=== PATIENT | male | born 1930 | race Hispanic/Latino ===

== ENCOUNTER 2017-11-05 09:18 | Emergency (ER) | payer MEDICARE ==
--- NOTE | 2017-11-05 10:49 | ED PDOC ---
HPI: CCC, URI, Sore Throat Time Seen by Provider: 11/05/17 09:36 Chief Complaint (Nursing): Cough, Cold, Congestion Chief Complaint (Provider): URI History Per: Patient Additional Complaint(s): Patient is an 87 yo male complaints of nasal congestion, SOB and sore/dry throat x 2 days. Denies fever or CP. 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) Past Medical History Reviewed: Nursing Documentation, Vital Signs Vital Signs: Last Vital Signs Temp 98.1 F 11/05/17 15:03 Pulse 75 11/05/17 15:03 Resp 16 11/05/17 15:03 BP 145/80 11/05/17 15:03 Pulse Ox 96 11/07/17 22:23 - Medical History Other PMH: Pt has trach in place - Family History Family History: States: Unknown Family Hx - Social History Current smoker - smoking cessation education provided: No Ex-Smoker (has not smoked in the last 12 months): Yes (2 ppd x 40 years) Alcohol: Social Drugs: Denies - Home Medications Home Medications: Ambulatory Orders Medication Instructions Recorded Azithromycin [Zithromax] 500 mg PO DAILY #6 tab 11/05/17 Azithromycin [Zithromax] 500 mg PO DAILY 4 Days ml 11/05/17 Guaifenesin/Pseudoephedrne HCl 1 tab PO DAILY PRN #30 ter 11/05/17 [Mucinex D 600 mg-60 mg] Oseltamivir [Tamiflu] 75 mg PO BID 5 Days cap 11/05/17 Oseltamivir [Tamiflu] 75 mg PO BID 5 Days ml 11/05/17 - Allergies Allergies/Adverse Reactions: Allergies Allergy/AdvReac Type Severity Reaction Status Date / Time No Known Allergies Allergy Verified 11/05/17 09:29 Review of Systems ROS Statement: Except As Marked, All Systems Reviewed And Found Negative ENT: Positive for: Nose Congestion Physical Exam - Reviewed Nursing Documentation Reviewed: Yes Vital Signs Reviewed: Yes - Physical Exam Appears: Positive for: Well, Non-toxic, No Acute Distress Head Exam: Positive for: ATRAUMATIC, NORMAL INSPECTION, NORMOCEPHALIC Skin: Positive for: Normal Color, Warm, DRY Eye Exam: Positive for: EOMI, Normal appearance, PERRL ENT: Positive for: Normal ENT Inspection Neck: Positive for: Normal, Painless ROM, Trachea Midline (trach in place) Cardiovascular/Chest: Positive for: Regular Rate, Rhythm Respiratory: Positive for: CNT, Normal Breath Sounds Gastrointestinal/Abdominal: Positive for: Normal Exam, Bowel Sounds, Soft Back: Positive for: Normal Inspection Extremity: Positive for: Normal ROM Neurologic/Psych: Positive for: Alert, Oriented - Laboratory Results Result Diagrams: 11/05/17 10:21 11/05/17 10:21 - ECG O2 Sat by Pulse Oximetry: 96 Medical Decision Making Medical Decision Making: EKG: A.flutter, left axis deviation, no acute ST changes, as read by ED MD CXR: Questionable left basilar infiltrate, as read by [facility] Labs resulted and reviewed with Pt who demonstrated full understanding admission advised for antibiotic therapy and further evaluation and management; however, Pt declined. reprots he would like to take oral antibiotics and go home Pt signed out AMA after all risks of leaving hospital were discussed at length, as well as all benefits of staying Disposition - Clinical Impression Clinical Impression: Pneumonia - Disposition Disposition: Against Medical Advice Disposition Time: 14:34 Condition: STABLE Prescriptions: Azithromycin [Zithromax] 500 mg PO DAILY 4 Days ml Azithromycin [Zithromax] 500 mg PO DAILY #6 tab Guaifenesin/Pseudoephedrne HCl [Mucinex D 600 mg-60 mg] 1 tab PO DAILY PRN #30 ter PRN Reason: congestion Oseltamivir [Tamiflu] 75 mg PO BID 5 Days ml Oseltamivir [Tamiflu] 75 mg PO BID 5 Days cap Forms: [employer] ([place])
[2017-11-05 11:07] LABS: BASO % 0.5 % (0.0-2.0); EOS % 0.1 % (0.0-4.0); HEMOGLOBIN 14.8 g/dL (12.0-18.0); LYMPH # 0.6 K/uL (1.0-4.3); LYMPH % 8.2 % (20.0-40.0); MEAN CELL VOLUME 99.7 fl (80.0-94.0); MEAN CORPUSCULAR HEMOGLOBIN 33.4 pg (27.0-31.0); MEAN CORPUSCULAR HGB CONC 33.5 g/dL (33.0-37.0); MEAN PLATELET VOLUME 8.8 fl (7.2-11.7); MONO # 0.7 K/uL (0.0-0.8); MONO % 9.9 % (0.0-10.0); NEUT % 81.3 % (50.0-75.0); PLATELET COUNT 238 K/uL (130-400); RBC 4.42 Mil/uL (4.40-5.90); RED CELL DISTRIBUTION WIDTH 14.1 % (11.5-14.5); WHITE BLOOD COUNT 7.3 K/uL (4.8-10.8)
[2017-11-05 11:13] LABS: ALB/GLOB RATIO 0.9 (1.0-2.1); ALBUMIN 3.9 g/dL (3.5-5.0); CALCIUM 8.8 mg/dL (8.4-10.2)
[2017-11-05 11:22] LABS: INR 1.3 (0.9-1.2); PARTIAL THROMBOPLASTIN TIME 30.5 Seconds (25.6-37.1); PROTHROMBIN TIME 14.1 Seconds (9.8-13.1)
[2017-11-05 11:24] LABS: TROPONIN I 0.053 ng/mL (0.00-0.120)
--- NOTE | 2017-11-05 11:30 | RAD ---
PROCEDURE: CHEST RADIOGRAPH, 1 VIEW HISTORY: cough COMPARISON: Chest radiograph dated 05/01/2008 FINDINGS: LUNGS: Patchy left basilar infiltrate versus focal scarring. PLEURA: No pneumothorax or pleural fluid seen. CARDIOVASCULAR: Atherosclerotic aortic calcifications. Cardiomediastinal silhouette stably enlarged. OSSEOUS STRUCTURES: Unchanged. VISUALIZED UPPER ABDOMEN: Normal. OTHER FINDINGS: Tracheostomy redemonstrated. IMPRESSION: Patchy left basilar infiltrate versus focal scarring.
[2017-11-05 12:48] LABS: EOSINOPHIL 1 % (0-7); LYMPHOCYTE 9 % (20-50); MONOCYTE 12 % (0-10); NEUTROPHIL 78 % (42-75); PLATELET ESTIMATE NORMAL (NORMAL); TOTAL CELLS COUNTED 100
[2017-11-05 15:04] VITALS: BP 145/80; PULSE 75; RESP 16; TEMP 98.1
--- NOTE | 2017-11-06 02:57 | CARD ---
APPROVED REPORT EKG Measurement Heart [id number] <Conclusion> consider A Flutter with 4:1 conduction Left axis deviation Anteroseptal infarct, age undetermined Abnormal ECG
[2017-11-07 22:20] VITALS: O2SAT 96
== END 2017-11-05 15:04 | disposition left against medical advice (07) ==
LOC: H.ER 09:18
DX: J18.9 Pneumonia, unspecified organism (principal); Z93.0 Tracheostomy status

== ENCOUNTER 2018-08-22 12:56 | Inpatient (IN) | payer MEDICARE, OTHER ==
[2018-08-22] MEDS ORDERED: Sodium Chloride 0.9% 1,000 ML IV STA ×2 (13:21→14:50)
--- NOTE | 2018-08-22 13:24 | ED PDOC ---
HPI: SOB/CHF/COPD Time Seen by Provider: 08/22/18 13:04 Chief Complaint (Nursing): Shortness Of Breath Chief Complaint (Provider): Shortness Of Breath History Per: EMS Onset/Duration Of Symptoms: Unknown Current Symptoms Are (Timing): Still Present Severity: Mild Additional Complaint(s): Brought by EMS due to tracheostomy tube falling out with subsequent SOB. Denies cough or bad pain. Denies fever. Past Medical History Reviewed: Historical Data, Nursing Documentation, Vital Signs Vital Signs: Last Vital Signs Temp Pulse 84 08/22/18 13:19 Resp 30 H 08/22/18 13:05 BP 110/75 08/22/18 13:19 Pulse Ox 88 L 08/22/18 13:05 - Surgical History Other surgeries: s/p tracheostomy - Family History Family History: States: Unknown Family Hx - Allergies Allergies/Adverse Reactions: Allergies Allergy/AdvReac Type Severity Reaction Status Date / Time No Known Allergies Allergy Verified 08/22/18 13:05 Review of Systems ROS Statement: Except As Marked, All Systems Reviewed And Found Negative Constitutional: Negative for: Fever Cardiovascular: Negative for: Chest Pain Respiratory: Positive for: Shortness of Breath Gastrointestinal: Negative for: Vomiting Physical Exam - Reviewed Nursing Documentation Reviewed: Yes Vital Signs Reviewed: Yes - Physical Exam Appears: Positive for: Non-toxic, No Acute Distress Head Exam: Positive for: ATRAUMATIC, NORMAL INSPECTION, NORMOCEPHALIC Skin: Positive for: Normal Color, Warm, DRY Eye Exam: Positive for: EOMI, Normal appearance, PERRL ENT: Positive for: Other (Dried blood around lips). Negative for: Normal ENT Inspection Neck: Negative for: Normal (Tracheostomy site intact, no bleeding. Secretions suctioned) Cardiovascular/Chest: Positive for: Regular Rate, Rhythm Respiratory: Positive for: Rhonchi. Negative for: Wheezing, Respiratory Distress Gastrointestinal/Abdominal: Positive for: Soft, Hernia (Large umbilical hernia). Negative for: Tenderness Back: Positive for: Normal Inspection Extremity: Positive for: Other (Left hip 3 cm dried ulcer with surrounding erythema. No drainage) Neurologic/Psych: Positive for: Alert, Oriented - Laboratory Results Result Diagrams: 08/22/18 13:29 08/22/18 13:29 - ECG O2 Sat by Pulse Oximetry: 88 (RA) Pulse Ox Interpretation: Normal - Progress Re-evaluation Time: 14:55 Condition: Unchanged - Critical Care Total Time (In Min): 30 Documented Critical Care: Time excludes all time spent performint seperately billable procedures Medical Decision Making Medical Decision MakinFr uncuffed trach tube replaced Disposition - Clinical Impression Clinical Impression: Sepsis, UTI (urinary tract infection), Dehydration - Patient ED Disposition Is Patient to be Admitted: Yes - Disposition Disposition Time: 14:56 Condition: GUARDED Forms: [employer] ([place] Citizen) - Pt Status Changed To: Hospital Disposition Of: Inpatient - Admit Certification Admit to Inpatient:: After my assessment, the patient will require hospitalization for at least two midnights. This is because of the severity of symptoms shown, intensity of services needed, and/or the medical risk in this patient being treated as an outpatient. - POA Present On Arrival: Pressure Ulcer
[2018-08-22 13:46] LABS: ALB/GLOB RATIO 0.8 (1.0-2.1); ALBUMIN 3.6 g/dL (3.5-5.0); BASO # 0.1 K/uL (0.0-0.2); BASO % 0.4 % (0.0-2.0); CALCIUM 8.7 mg/dL (8.4-10.2); LYMPH # 0.1 K/uL (1.0-4.3); LYMPH % 0.5 % (20.0-40.0); MEAN CELL VOLUME 100.6 fl (80.0-94.0); MEAN CORPUSCULAR HEMOGLOBIN 33.1 pg (27.0-31.0); MEAN CORPUSCULAR HGB CONC 32.9 g/dL (33.0-37.0); MEAN PLATELET VOLUME 8.7 fl (7.2-11.7); MONO # 0.5 K/uL (0.0-0.8); MONO % 2.3 % (0.0-10.0); NEUT # 20.4 K/uL (1.8-7.0); NEUT % 96.8 % (50.0-75.0); PLATELET COUNT 241 K/uL (130-400); RBC 3.62 Mil/uL (4.40-5.90); WHITE BLOOD COUNT 21.1 K/uL (4.8-10.8)
--- NOTE | 2018-08-22 14:08 | RAD ---
Date of service: 08/22/2018 HISTORY: Cough. COMPARISON: 05/08/2018. FINDINGS: LUNGS: No active pulmonary disease. PLEURA: No significant pleural effusion identified, no pneumothorax apparent. CARDIOVASCULAR: Atherosclerotic calcifications identified primarily aortic arch. No radiographic findings to suggest acute or significant cardiovascular disease. OSSEOUS STRUCTURES: No significant abnormalities. VISUALIZED UPPER ABDOMEN: Normal. OTHER FINDINGS: Stable, satisfactory position of tracheostomy device. IMPRESSION: No active disease. No significant interval change compared to the prior examination(s).
[2018-08-22 14:47] LABS: VENOUS BLOOD GAS BASE EXCESS -3.8 mmol/L (0.0-2.0); VENOUS BLOOD GAS PCO2 49 mmHg (40-60); VENOUS BLOOD GAS PO2 15 mm/Hg (30-55); VENOUS BLOOD PH 7.29 (7.32-7.43)
[2018-08-22] MEDS ORDERED: Vancomycin 1 g Inj ONE (14:54)
[2018-08-22] MEDS ORDERED: Acetaminophen 325 MG/10.15 ML PO STA (15:04)
[2018-08-22] MEDS ORDERED: Acetaminophen 325 MG/10.15 ML ONE (15:07)
[2018-08-22 15:20] LABS: BANDS 8 % (0-2); LYMPHOCYTE 1 % (20-50); MONOCYTE 5 % (0-10); NEUTROPHIL 86 % (42-75); PLATELET ESTIMATE NORMAL (NORMAL); TOTAL CELLS COUNTED 100
[2018-08-22 15:21] LABS: ANISOCYTOSIS SLIGHT; LARGE PLATELETS PRESENT; OVALOCYTES SLIGHT
[2018-08-22 15:22] LABS: SQUAMOUS EPITHIAL 63 /hpf (0-5); URINE BACTERIA MANY (<OCC); URINE BILIRUBIN NEGATIVE (NEGATIVE); URINE BLOOD MODERATE (NEGATIVE); URINE CLARITY TURBID (Clear); URINE COLOR YELLOW (YELLOW); URINE GLUCOSE (UA) NEG (NEGATIVE); URINE LEUKOCYTE ESTERASE SMALL Leu/uL (Negative); URINE PROTEIN >=500 mg/dL (NEGATIVE); URINE UROBILINOGEN 0.2-1.0 mg/dL (0.2-1.0); WBC CLUMPS MANY /hpf
--- NOTE | 2018-08-22 16:08 | CP.PCM.HP ---
<Susan Parekh - Last Filed: 08/22/18 16:27> History of Present Illness - History of Present Illness History of Present Illness: 87 yo male seen in the ED for sepsis secondary possibly secondary to UTI. Patient is not oriented and is unable to give full history. Patients daughter is at bedside who is also unable to give the patients history, as the patient lives alone. Patient states he does not know why hes at the hospital and states he is in no pain at this time. Patient states he remembers his trach had came out, and thinks hes in the ED for that reason. Denies seeing a primary care doctor at this time. States he used to see Dr. Robbins, however that doctor has retired. As per nurse, purulent drainage noted while inserting the frederick catheter. Patient denies fever/chills/nausea/vomiting/d/c/SOB. 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), no current doctor. Past medical history: denies Past surgical history: tracheotomy Allergies: none Medication: Radha rae Present on Admission - Present on Admission Any Indicators Present on Admission: No Review of Systems - Cardiovascular Cardiovascular: absent: Chest Pain - Gastrointestinal Gastrointestinal: absent: Vomiting Past Patient History - Past Social History Smoking Status: Unknown If Ever Smoked - PULMONARY Hx Respiratory Disorders: Yes Other/Comment: tracheostomy - PSYCHIATRIC Hx Substance Use: No - ANESTHESIA Hx Anesthesia: Yes Hx Anesthesia Reactions: No Hx Malignant Hyperthermia: No Meds Allergies/Adverse Reactions: Allergies Allergy/AdvReac Type Severity Reaction Status Date / Time No Known Allergies Allergy Verified 08/22/18 13:05 Physical Exam - Constitutional Appears: Well, Non-toxic, No Acute Distress - Head Exam Head Exam: ATRAUMATIC, NORMAL INSPECTION, NORMOCEPHALIC - Eye Exam Eye Exam: Normal appearance, PERRL Pupil Exam: PERRL - ENT Exam ENT Exam: Mucous Membranes Dry Additional comments: Dried blood around lips - Neck Exam Additional comments: tracheotomy site intact, no bleeding, secretions suctioned - Respiratory Exam Respiratory Exam: Rhonchi. absent: Wheezes, Respiratory Distress - GI/Abdominal Exam GI & Abdominal Exam: Normal Bowel Sounds Additional comments: large umbilical hernias - Extremities Exam Extremities exam: Negative for: calf tenderness, pedal edema, tenderness Additional comments: Left hip 3 cm dried ulcer with surrounding erythema, no drainage. superficial - Neurological Exam Neurological exam: Alert - Psychiatric Exam Psychiatric exam: Normal Affect - Skin Skin Exam: Normal Color Results - Vital Signs Recent Vital Signs: Last Vital Signs Temp 102.8 F H 08/22/18 15:15 Pulse 88 08/22/18 13:28 Resp 20 08/22/18 13:28 BP 110/74 08/22/18 13:28 Pulse Ox 88 L 08/22/18 14:56 - Labs Result Diagrams: 08/22/18 13:29 08/22/18 13:29 Labs: Laboratory Results - last 24 hr 08/22/18 08/22/18 08/22/18 13:29 13:29 14:18 WBC 21.1 H D RBC 3.62 L Hgb 12.0 D Hct 36.4 MCV 100.6 H MCH 33.1 H MCHC 32.9 L RDW 14.0 Plt Count 241 MPV 8.7 Neut % (Auto) 96.8 H Lymph % (Auto) 0.5 L Barber % (Auto) 2.3 Eos % (Auto) 0.0 Baso % (Auto) 0.4 Neut # (Auto) 20.4 H Lymph # (Auto) 0.1 L Barber # (Auto) 0.5 Eos # (Auto) 0.0 Baso # (Auto) 0.1 Neutrophils % (Manual) 86 H Band Neutrophils % 8 H Lymphocytes % (Manual) 1 L Monocytes % (Manual) 5 Platelet Estimate Normal Large Platelets Present Anisocytosis (manual) Slight Ovalocytes Slight pO2 15 L VBG pH 7.29 L VBG pCO2 49 VBG HCO3 18.4 VBG Total CO2 25.1 VBG O2 Sat (Calc) 19.4 L VBG Base Excess -3.8 L VBG Potassium 5.8 H Glucose 127 H Lactate 7.4 H* FiO2 21.0 Blood Gas Comments Vbg Crit Value Called To Dr. cameron larose m.d. Crit Value Called By Kassie Crit Value Read Back Y Blood Gas Notified Time 1446 Sodium 138 138.0 Potassium 5.3 H Chloride 102 96.0 L Carbon Dioxide 20 L Anion Gap 21 H BUN 28 H Creatinine 2.4 H Est GFR ( Amer) 31 Est GFR (Non-Af Amer) 26 Random Glucose 130 H Calcium 8.7 Total Bilirubin 0.8 AST 175 H D ALT 29 Alkaline Phosphatase 98 Total Protein 8.0 Albumin 3.6 Globulin 4.4 H Albumin/Globulin Ratio 0.8 L Venous Blood Potassium 5.8 H Urine Color Urine Clarity Urine pH Ur Specific [place] Urine Protein Urine Glucose (UA) Urine Ketones Urine Blood Urine Nitrate Urine Bilirubin Urine Urobilinogen Ur Leukocyte Esterase Urine RBC (Auto) Urine WBC Clumps (Auto) Urine Microscopic WBC Ur Squamous Epith Cells Urine Bacteria 08/22/18 14:55 WBC RBC Hgb Hct MCV MCH MCHC RDW Plt Count MPV Neut % (Auto) Lymph % (Auto) Barber % (Auto) Eos % (Auto) Baso % (Auto) Neut # (Auto) Lymph # (Auto) Barber # (Auto) Eos # (Auto) Baso # (Auto) Neutrophils % (Manual) Band Neutrophils % Lymphocytes % (Manual) Monocytes % (Manual) Platelet Estimate Large Platelets Anisocytosis (manual) Ovalocytes pO2 VBG pH VBG pCO2 VBG HCO3 VBG Total CO2 VBG O2 Sat (Calc) VBG Base Excess VBG Potassium Glucose Lactate FiO2 Blood Gas Comments Crit Value Called To Crit Value Called By Crit Value Read Back Blood Gas Notified Time Sodium Potassium Chloride Carbon Dioxide Anion Gap BUN Creatinine Est GFR ( Amer) Est GFR (Non-Af Amer) Random Glucose Calcium Total Bilirubin AST ALT Alkaline Phosphatase Total Protein Albumin Globulin Albumin/Globulin Ratio Venous Blood Potassium Urine Color Yellow Urine Clarity Turbid Urine pH 5.0 Ur Specific [place] 1.012 Urine Protein >=500 Urine Glucose (UA) Neg Urine Ketones Negative Urine Blood Moderate Urine Nitrate Negative Urine Bilirubin Negative Urine Urobilinogen 0.2-1.0 Ur Leukocyte Esterase Small Urine RBC (Auto) 880 H Urine WBC Clumps (Auto) Many H Urine Microscopic WBC 79012 H Ur Squamous Epith Cells 63 H Urine Bacteria Many H Assessment & Plan - Assessment and Plan (Free Text) Assessment: 87 yo male admitted for sepsis secondary to urinary tract infection. Plan: Sepsis secondary to urinary tract infection - WBC 21.1, febrile 101.8 BP 102/56 - f/u Urine culture - f/u blood culture - Continue vancomycin 1 gm and Zosyn 2.25 gm f/u on vanc trough. - Lactate 7.4 f/u on new lactic acid and labs COPD -no acute exacerbation -trach intact Prophylaxis -Dvt: SCD -GI: protonix Left buttock and right tricep superficial wound possibly secondary to trauma - stable, no drainage. Full code - unknown <South,Carlos Enrique D - Last Filed: 08/22/18 16:44> Results - Vital Signs Recent Vital Signs: Last Vital Signs Temp 101.8 F H 08/22/18 16:05 Pulse 78 08/22/18 16:05 Resp 22 08/22/18 16:05 BP 102/56 L 08/22/18 16:05 Pulse Ox 96 08/22/18 16:05 - Labs Result Diagrams: 08/22/18 13:29 08/22/18 13:29 Labs: Laboratory Results - last 24 hr 08/22/18 08/22/18 08/22/18 13:29 13:29 14:18 WBC 21.1 H D RBC 3.62 L Hgb 12.0 D Hct 36.4 MCV 100.6 H MCH 33.1 H MCHC 32.9 L RDW 14.0 Plt Count 241 MPV 8.7 Neut % (Auto) 96.8 H Lymph % (Auto) 0.5 L Barber % (Auto) 2.3 Eos % (Auto) 0.0 Baso % (Auto) 0.4 Neut # (Auto) 20.4 H Lymph # (Auto) 0.1 L Barber # (Auto) 0.5 Eos # (Auto) 0.0 Baso # (Auto) 0.1 Neutrophils % (Manual) 86 H Band Neutrophils % 8 H Lymphocytes % (Manual) 1 L Monocytes % (Manual) 5 Platelet Estimate Normal Large Platelets Present Anisocytosis (manual) Slight Ovalocytes Slight pO2 15 L VBG pH 7.29 L VBG pCO2 49 VBG HCO3 18.4 VBG Total CO2 25.1 VBG O2 Sat (Calc) 19.4 L VBG Base Excess -3.8 L VBG Potassium 5.8 H Glucose 127 H Lactate 7.4 H* FiO2 21.0 Blood Gas Comments Vbg Crit Value Called To Dr. cameron larose m.d. Crit Value Called By Kassie Crit Value Read Back Y Blood Gas Notified Time 1446 Sodium 138 138.0 Potassium 5.3 H Chloride 102 96.0 L Carbon Dioxide 20 L Anion Gap 21 H BUN 28 H Creatinine 2.4 H Est GFR ( Amer) 31 Est GFR (Non-Af Amer) 26 Random Glucose 130 H Calcium 8.7 Total Bilirubin 0.8 AST 175 H D ALT 29 Alkaline Phosphatase 98 Total Protein 8.0 Albumin 3.6 Globulin 4.4 H Albumin/Globulin Ratio 0.8 L Venous Blood Potassium 5.8 H Urine Color Urine Clarity Urine pH Ur Specific [place] Urine Protein Urine Glucose (UA) Urine Ketones Urine Blood Urine Nitrate Urine Bilirubin Urine Urobilinogen Ur Leukocyte Esterase Urine RBC (Auto) Urine WBC Clumps (Auto) Urine Microscopic WBC Ur Squamous Epith Cells Urine Bacteria 08/22/18 14:55 WBC RBC Hgb Hct MCV MCH MCHC RDW Plt Count MPV Neut % (Auto) Lymph % (Auto) Barber % (Auto) Eos % (Auto) Baso % (Auto) Neut # (Auto) Lymph # (Auto) Barber # (Auto) Eos # (Auto) Baso # (Auto) Neutrophils % (Manual) Band Neutrophils % Lymphocytes % (Manual) Monocytes % (Manual) Platelet Estimate Large Platelets Anisocytosis (manual) Ovalocytes pO2 VBG pH VBG pCO2 VBG HCO3 VBG Total CO2 VBG O2 Sat (Calc) VBG Base Excess VBG Potassium Glucose Lactate FiO2 Blood Gas Comments Crit Value Called To Crit Value Called By Crit Value Read Back Blood Gas Notified Time Sodium Potassium Chloride Carbon Dioxide Anion Gap BUN Creatinine Est GFR ( Amer) Est GFR (Non-Af Amer) Random Glucose Calcium Total Bilirubin AST ALT Alkaline Phosphatase Total Protein Albumin Globulin Albumin/Globulin Ratio Venous Blood Potassium Urine Color Yellow Urine Clarity Turbid Urine pH 5.0 Ur Specific [place] 1.012 Urine Protein >=500 Urine Glucose (UA) Neg Urine Ketones Negative Urine Blood Moderate Urine Nitrate Negative Urine Bilirubin Negative Urine Urobilinogen 0.2-1.0 Ur Leukocyte Esterase Small Urine RBC (Auto) 880 H Urine WBC Clumps (Auto) Many H Urine Microscopic WBC 49774 H Ur Squamous Epith Cells 63 H Urine Bacteria Many H Attending/Attestation - Attestation I have personally seen and examined this patient.: Yes I have fully participated in the care of the patient.: Yes I have reviewed all pertinent clinical information: Yes Notes (Text): 08/22/18 16:44 Patient seen and examined with resident. Case discussed and agreed with assessment and plan of management.
[2018-08-22] MEDS ORDERED: Sod Polystyrene Sulf 15 gm/60 ml Susp PO ONE (16:42)
--- NOTE | 2018-08-22 16:45 | RAD ---
PROCEDURE: Radiographs of the right humerus. HISTORY: injury COMPARISON: None. FINDINGS: BONES: Normal. No fracture or focal lesion. SOFT TISSUES: Normal. OTHER FINDINGS: Incompletely visualized degenerative changes shoulder and right elbow. IMPRESSION: No acute findings related to/ accounting for the clinical presentation.
[2018-08-22] MEDS: Sodium Chloride 0.9% 1,000 ML IV SCH (17:16)
--- NOTE | 2018-08-22 17:41 | CARD ---
APPROVED REPORT Date of service: 08/22/2018 EKG Measurement Heart [id number] <Conclusion> Atrial fibrillation Left axis deviation Anteroseptal infarct, age undetermined Abnormal ECG
[2018-08-22] MEDS: Pantoprazole 40 mg EC Tab PO SCH (19:09)
[2018-08-22 20:16] VITALS: BMI 27.5
[2018-08-23] MEDS: Sodium Chloride 0.9% 1,000 ML IV SCH ×2 (00:42→09:00)
[2018-08-23 05:20] LABS: ABG ALLEN TEST YES; ARTERIAL BLOOD GAS HCO3 20.2 mmol/L (21-28); ARTERIAL BLOOD GAS PCO2 41 mm/Hg (35-45); ARTERIAL BLOOD GAS PO2 66 mm/Hg (80-100); ARTERIAL BLOOD GAS TCO2 21.5 mmol/L (22-28)
[2018-08-23 07:31] LABS: BASO % 0.1 % (0.0-2.0); LYMPH # 0.3 K/uL (1.0-4.3); LYMPH % 2.7 % (20.0-40.0); MEAN CELL VOLUME 102.6 fl (80.0-94.0); MEAN CORPUSCULAR HGB CONC 32.1 g/dL (33.0-37.0); MEAN PLATELET VOLUME 8.8 fl (7.2-11.7); MONO # 0.3 K/uL (0.0-0.8); MONO % 2.8 % (0.0-10.0); NEUT # 10.9 K/uL (1.8-7.0); NEUT % 94.4 % (50.0-75.0); PLATELET COUNT 176 K/uL (130-400); RBC 3.35 Mil/uL (4.40-5.90); RED CELL DISTRIBUTION WIDTH 14.5 % (11.5-14.5); WHITE BLOOD COUNT 11.5 K/uL (4.8-10.8)
[2018-08-23 07:58] LABS: CALCIUM 6.8 mg/dL (8.4-10.2)
[2018-08-23 08:12] LABS: INR 1.6; PROTHROMBIN TIME 18.6 Seconds (9.8-13.1)
[2018-08-23 08:14] LABS: PARTIAL THROMBOPLASTIN TIME 35.3 Seconds (25.6-37.1)
[2018-08-23] MEDS: Pantoprazole 40 mg EC Tab PO SCH (08:55)
--- NOTE | 2018-08-23 11:34 | CP.PCM.PN ---
<Spring Antnuez - Last Filed: 08/23/18 11:35> Subjective - Date & Time of Evaluation Date of Evaluation: 08/23/18 Time of Evaluation: 09:00 - Subjective Subjective: Patient seen and examined at bedside. Very difficult to understand as he is w/ tracheostomy. He denies abdominal/back pain, n/v. He is oriented to self and place. Does not know what year it is or who the president is. Charts, labs, and nurse notes reviewed. Objective - Vital Signs/Intake and Output Vital Signs (last 24 hours): Temp Pulse Resp BP Pulse Ox 98.5 F 97 H 22 125/71 95 08/23/18 08:00 08/23/18 08:00 08/23/18 08:00 08/23/18 08:00 08/23/18 08:00 - Medications Medications: Current Medications Acetaminophen (Tylenol 325mg Tab) 650 mg PO Q6 PRN PRN Reason: Fever >100.4 F Albuterol/Ipratropium (Duoneb 3 Mg/0.5 Mg (3 Ml) Ud) 3 ml INH RQ4 PRN PRN Reason: Shortness of Breath Docusate Sodium (Colace) 100 mg PO BID PRN PRN Reason: Constipation Heparin Sodium (Porcine) (Heparin) 5,000 units SC Q12 [facility]; Protocol Last Admin: 08/23/18 08:54 Dose: 5,000 units Sodium Chloride (Sodium Chloride 0.9%) 1,000 mls @ 150 mls/hr IV .Q6H40M [facility] Last Admin: 08/23/18 09:00 Dose: 150 mls/hr Vancomycin HCl 1 gm/ Sodium (Chloride) 250 mls @ 166.667 mls/hr IVPB DAILY [facility]; Protocol Last Admin: 08/23/18 08:56 Dose: 166.667 mls/hr Piperacillin Sod/Tazobactam (Sod 2.25 gm/ Sodium Chloride) 100 mls @ 100 mls/hr IVPB Q6 [facility]; Protocol Last Admin: 08/23/18 09:00 Dose: 100 mls/hr Pantoprazole Sodium (Protonix Ec Tab) 40 mg PO DAILY [facility] Last Admin: 08/23/18 08:55 Dose: 40 mg - Labs Labs: 08/23/18 05:30 08/23/18 05:30 PT 18.6 Seconds (9.8-13.1) H 08/23/18 05:30 INR 1.6 08/23/18 05:30 APTT 35.3 Seconds (25.6-37.1) 08/23/18 05:30 - ENT Exam ENT Exam: Mucous Membranes Moist - Neck Exam Additional comments: tracheostomy in place - Respiratory Exam Respiratory Exam: Clear to Ausculation Bilateral, NORMAL BREATHING PATTERN - Cardiovascular Exam Cardiovascular Exam: +S1, +S2 - GI/Abdominal Exam GI & Abdominal Exam: Soft, Normal Bowel Sounds. absent: Tenderness - Back Exam Back Exam: absent: CVA tenderness (L), CVA tenderness (R) - Neurological Exam Neurological Exam: Alert, Awake. absent: Oriented x3 - Skin Skin Exam: Dry, Intact, Warm Assessment and Plan - Assessment and Plan (Free Text) Assessment: 87 yo male admitted for sepsis secondary to urinary tract infection, treated w/ vanc 1gm IV QD and Zosyn 2.25 IV Q6. Leukocytosis trending down. Plan: Sepsis secondary to urinary tract infection - improving, afebrile today - WBC 21.1, Lactate 7.4, febrile 101.8 BP 102/56 on admission - wbc trending down, 21.1-->11.5 today - f/u Urine culture and blood culture - Continue vancomycin 1 gm and Zosyn 2.25 gm f/u on vanc trough. - lactate 1.7 today Acute Kidney Injury -likely multifactorial 2/2 sepsis vs. dehydration - IV fluid hydration NaCl- 1L @ 150mL/hr -Renal dosing of meds -avoid nephrotoxic rx COPD -no acute exacerbation -trach intact Prophylaxis -Dvt: SCD -GI: protonix Left buttock and right tricep superficial wound possibly secondary to trauma - stable, no drainage. Full code - unknown <Carlos Enrique South D - Last Filed: 08/23/18 15:01> Objective - Vital Signs/Intake and Output Vital Signs (last 24 hours): Temp Pulse Resp BP Pulse Ox 97.5 F L 96 H 16 119/39 L 96 08/23/18 12:39 08/23/18 12:39 08/23/18 12:39 08/23/18 12:39 08/23/18 12:39 - Medications Medications: Current Medications Acetaminophen (Tylenol 325mg Tab) 650 mg PO Q6 PRN PRN Reason: Fever >100.4 F Albuterol/Ipratropium (Duoneb 3 Mg/0.5 Mg (3 Ml) Ud) 3 ml INH RQ4 PRN PRN Reason: Shortness of Breath Docusate Sodium (Colace) 100 mg PO BID PRN PRN Reason: Constipation Heparin Sodium (Porcine) (Heparin) 5,000 units SC Q12 [facility]; Protocol Last Admin: 08/23/18 08:54 Dose: 5,000 units Sodium Chloride (Sodium Chloride 0.9%) 1,000 mls @ 150 mls/hr IV .Q6H40M [facility] Last Admin: 08/23/18 09:00 Dose: 150 mls/hr Vancomycin HCl 1 gm/ Sodium (Chloride) 250 mls @ 166.667 mls/hr IVPB DAILY [facility]; Protocol Last Admin: 08/23/18 08:56 Dose: 166.667 mls/hr Piperacillin Sod/Tazobactam (Sod 2.25 gm/ Sodium Chloride) 100 mls @ 100 mls/hr IVPB Q6 [facility]; Protocol Last Admin: 08/23/18 09:00 Dose: 100 mls/hr Ipratropium Sullivan (Atrovent) 0.5 mg IH Q8H [facility] Levalbuterol HCl (Xopenex) 0.63 mg INH RQ8 [facility] Pantoprazole Sodium (Protonix Ec Tab) 40 mg PO DAILY [facility] Last Admin: 08/23/18 08:55 Dose: 40 mg - Labs Labs: 08/23/18 05:30 08/23/18 05:30 PT 18.6 Seconds (9.8-13.1) H 08/23/18 05:30 INR 1.6 08/23/18 05:30 APTT 35.3 Seconds (25.6-37.1) 08/23/18 05:30 Attending/Attestation - Attestation I have personally seen and examined this patient.: Yes I have fully participated in the care of the patient.: Yes I have reviewed all pertinent clinical information, including history, physical exam and plan: Yes Notes (Text): 08/23/18 14:58 Patient seen and examined with resident. Case discussed and agreed with assessment. Patient appeared better although his lactate went back up and bands in CBC went up. Dr Graf, ID consult, advised to continue IV Vanco and Zosyn for the meantime. Urine culture grew Strep Agalactiae Group B but has no sensitivities.
[2018-08-23 12:26] LABS: BANDS 18 % (0-2); HYPOCHROMIC SLIGHT; LYMPHOCYTE 2 % (20-50); METAMYELOCYTE 1 % (0-0); MONOCYTE 3 % (0-10); NEUTROPHIL 76 % (42-75); OVALOCYTES SLIGHT; PLATELET ESTIMATE NORMAL (NORMAL); SCHISTOCYTES SLIGHT; TEARDROP CELLS SLIGHT; TOTAL CELLS COUNTED 100; TOXIC GRANULATION PRESENT
[2018-08-23 12:27] LABS: LARGE PLATELETS PRESENT; PLATELET CLUMPS PRESENT
[2018-08-23] MEDS ORDERED: Levalbuterol 0.63 MG/3 ML Inhal Soln UD INH PRN (14:30)
[2018-08-23] MEDS ORDERED: Ipratropium 0.02% Inhal Soln (0.5 mg/2.5 ml) UD IH PRN (14:34)
--- NOTE | 2018-08-23 14:37 | CP.PCM.CON ---
History of Present Illness - History of Present Illness History of Present Illness: Pulmonary consult for a 87 y/o M, Status DNR/DNI, Hx Dementia, PNA, Prostate problems, Falls, status Tracheotomy tube, found with mild to moderate SOB, occasional cough, non bloody, associated to fever (Tmax 102.8). On , Pt was Brought via EMS to [facility], [place] after seen on floor by [employer] representative while at home, Pt was brought for evaluation and Tx, also found with Tracheotomy tube falling out and mild SOB. Worsening symptoms: Unable to give full history. Aggravated factor: Movements/change of positions No: CP, syncope, dizziness, cough, abdominal pain, back pain, sick contact. CXR: No active disease. Echo: A Fib, EF 50-55%, , MR. EKG: A Fib, Anteroseptal CT age undetermined. Review of Systems - Review of Systems Systems not reviewed;Unavailable: Acuity of Condition, Dementia Past Patient History - Past Medical History & Family History Past Medical History?: Yes Pertinent Family History: Unknown - Past Social History Smoking Status: Former Smoker Alcohol: None Drugs: Denies Home Situation {Lives}: Alone - CARDIAC Hx Cardiac Disorders: No Hx Angina: No - PULMONARY Hx Respiratory Disorders: Yes Hx Chronic Obstructive Pulmonary Disease (COPD): Yes Hx Pneumonia: Yes Other/Comment: W/ trach - NEUROLOGICAL Hx Neurological Disorder: Yes Hx Dementia: Yes - HEENT Hx HEENT Problems: No - RENAL Hx Chronic Kidney Disease: No - ENDOCRINE/METABOLIC Hx Endocrine Disorders: No - HEMATOLOGICAL/ONCOLOGICAL Hx Blood Disorders: No Hx AIDS: No Hx Human Immunodeficiency Virus (HIV): No - INTEGUMENTARY Hx Dermatological Problems: No - MUSCULOSKELETAL/RHEUMATOLOGICAL Hx Musculoskeletal Disorders: Yes Hx Falls: Yes - GASTROINTESTINAL Hx Gastrointestinal Disorders: No - GENITOURINARY/GYNECOLOGICAL Hx Genitourinary Disorders: Yes Hx Prostate Problems: Yes - PSYCHIATRIC Hx Psychophysiologic Disorder: No Hx Substance Use: No - SURGICAL HISTORY Hx Surgeries: Yes Hx Joint Replacement: Yes (LEFT KNEE SURGERY) - ANESTHESIA Hx Anesthesia: Yes Hx Anesthesia Reactions: No Hx Malignant Hyperthermia: No Meds Allergies/Adverse Reactions: Allergies Allergy/AdvReac Type Severity Reaction Status Date / Time No Known Allergies Allergy Verified 08/22/18 13:05 - Medications Medications: Current Medications Acetaminophen (Tylenol 325mg Tab) 650 mg PO Q6 PRN PRN Reason: Fever >100.4 F Albuterol/Ipratropium (Duoneb 3 Mg/0.5 Mg (3 Ml) Ud) 3 ml INH RQ4 PRN PRN Reason: Shortness of Breath Docusate Sodium (Colace) 100 mg PO BID PRN PRN Reason: Constipation Heparin Sodium (Porcine) (Heparin) 5,000 units SC Q12 [facility]; Protocol Last Admin: 08/23/18 08:54 Dose: 5,000 units Sodium Chloride (Sodium Chloride 0.9%) 1,000 mls @ 150 mls/hr IV .Q6H40M [facility] Last Admin: 08/23/18 09:00 Dose: 150 mls/hr Vancomycin HCl 1 gm/ Sodium (Chloride) 250 mls @ 166.667 mls/hr IVPB DAILY [facility]; Protocol Last Admin: 08/23/18 08:56 Dose: 166.667 mls/hr Piperacillin Sod/Tazobactam (Sod 2.25 gm/ Sodium Chloride) 100 mls @ 100 mls/hr IVPB Q6 [facility]; Protocol Last Admin: 08/23/18 09:00 Dose: 100 mls/hr Ipratropium [place] (Atrovent) 0.5 mg IH Q8H PRN PRN Reason: Shortness of Breath Levalbuterol HCl (Xopenex) 0.63 mg INH RQ8 PRN PRN Reason: Shortness of Breath Pantoprazole Sodium (Protonix Ec Tab) 40 mg PO DAILY [facility] Last Admin: 08/23/18 08:55 Dose: 40 mg Physical Exam - Constitutional Appears: No Acute Distress, Confused - Head Exam Head Exam: NORMAL INSPECTION - Eye Exam Eye Exam: PERRL Additional comments: L lower eyelid ectropion - ENT Exam ENT Exam: Normal Exam (R eye, L lower ) - Neck Exam Additional comments: Tracheotomy in place - Respiratory Exam Respiratory Exam: Rhonchi (scattered) - Cardiovascular Exam Cardiovascular Exam: Irregular Rhythm - GI/Abdominal Exam GI & Abdominal Exam: Soft Additional comments: Umbilical and abdominal hernias - Extremities Exam Extremities exam: Positive for: normal inspection Additional comments: L knee healed scar from surgery - Neurological Exam Additional comments: Awake, confused, craneal nerves grossly normal,moves all exremities - Psychiatric Exam Psychiatric exam: Anxious - Skin Skin Exam: Warm Results - Vital Signs Recent Vital Signs: Last Vital Signs Temp 97.5 F L 08/23/18 12:39 Pulse 96 H 08/23/18 12:39 Resp 16 08/23/18 12:39 BP 119/39 L 08/23/18 12:39 Pulse Ox 96 08/23/18 12:39 reviewed Chon - Labs Result Diagrams: 08/24/18 05:30 08/23/18 05:30 Labs: Laboratory Results - last 24 hr 08/22/18 08/22/18 08/22/18 13:29 14:18 14:55 WBC RBC Hgb Hct MCV MCH MCHC RDW Plt Count MPV Neut % (Auto) Lymph % (Auto) Glenn % (Auto) Eos % (Auto) Baso % (Auto) Neut # (Auto) Lymph # (Auto) Glenn # (Auto) Eos # (Auto) Baso # (Auto) Neutrophils % (Manual) 86 H Band Neutrophils % 8 H Lymphocytes % (Manual) 1 L Monocytes % (Manual) 5 Metamyelocytes % Toxic Granulation Platelet Estimate Normal Plt Clumps, EDTA Large Platelets Present Hypochromasia (manual) Anisocytosis (manual) Slight Macrocytosis (manual) Tear Drop Cells Ovalocytes Slight Schistocytes PT INR APTT pCO2 pO2 15 L HCO3 ABG pH ABG Total CO2 ABG O2 Saturation ABG Base Excess Jam Test ABG Potassium VBG pH 7.29 L VBG pCO2 49 VBG HCO3 18.4 VBG Total CO2 25.1 VBG O2 Sat (Calc) 19.4 L VBG Base Excess -3.8 L VBG Potassium 5.8 H A-a O2 Difference Sodium 138.0 Chloride 96.0 L Glucose 127 H Lactate 7.4 H* FiO2 21.0 Blood Gas Comments Vbg Crit Value Called To Dr. cameron larose m.d. Crit Value Called By Kassie Crit Value Read Back Y Blood Gas Notified Time 1446 Potassium Carbon Dioxide Anion Gap BUN Creatinine Est GFR ( Amer) Est GFR (Non-Af Amer) Random Glucose Lactic Acid Calcium Triglycerides Cholesterol LDL Cholesterol Direct HDL Cholesterol TSH 3rd Generation Arterial Blood Potassium Venous Blood Potassium 5.8 H Urine Color Yellow Urine Clarity Turbid Urine pH 5.0 Ur Specific [place] 1.012 Urine Protein >=500 Urine Glucose (UA) Neg Urine Ketones Negative Urine Blood Moderate Urine Nitrate Negative Urine Bilirubin Negative Urine Urobilinogen 0.2-1.0 Ur Leukocyte Esterase Small Urine RBC (Auto) 880 H Urine WBC Clumps (Auto) Many H Urine Microscopic WBC 64256 H Ur Squamous Epith Cells 63 H Urine Bacteria Many H 08/22/18 08/23/18 08/23/18 18:48 04:00 05:30 WBC 11.5 H RBC 3.35 L Hgb 11.0 L Hct 34.4 L MCV 102.6 H D MCH 33.0 H MCHC 32.1 L RDW 14.5 Plt Count 176 MPV 8.8 Neut % (Auto) 94.4 H Lymph % (Auto) 2.7 L Glenn % (Auto) 2.8 Eos % (Auto) 0.0 Baso % (Auto) 0.1 Neut # (Auto) 10.9 H Lymph # (Auto) 0.3 L Glenn # (Auto) 0.3 Eos # (Auto) 0.0 Baso # (Auto) 0.0 Neutrophils % (Manual) 76 H Band Neutrophils % 18 H* Lymphocytes % (Manual) 2 L Monocytes % (Manual) 3 Metamyelocytes % 1 H Toxic Granulation Present Platelet Estimate Normal Plt Clumps, EDTA Present Large Platelets Present Hypochromasia (manual) Slight Anisocytosis (manual) Macrocytosis (manual) Slight Tear Drop Cells Slight Ovalocytes Slight Schistocytes Slight PT INR APTT pCO2 41 pO2 66 L HCO3 20.2 L ABG pH 7.30 L ABG Total CO2 21.5 L ABG O2 Saturation 95.0 ABG Base Excess -5.9 L Jam Test Yes ABG Potassium 4.6 VBG pH VBG pCO2 VBG HCO3 VBG Total CO2 VBG O2 Sat (Calc) VBG Base Excess VBG Potassium A-a O2 Difference 82.0 Sodium 136.0 Chloride 109.0 H Glucose 146 H Lactate 1.7 FiO2 28.0 Blood Gas Comments Crit Value Called To Crit Value Called By Crit Value Read Back Blood Gas Notified Time Potassium Carbon Dioxide Anion Gap BUN Creatinine Est GFR ( Amer) Est GFR (Non-Af Amer) Random Glucose Lactic Acid 2.5 H Calcium Triglycerides Cholesterol LDL Cholesterol Direct HDL Cholesterol TSH 3rd Generation Arterial Blood Potassium 4.6 Venous Blood Potassium Urine Color Urine Clarity Urine pH Ur Specific [place] Urine Protein Urine Glucose (UA) Urine Ketones Urine Blood Urine Nitrate Urine Bilirubin Urine Urobilinogen Ur Leukocyte Esterase Urine RBC (Auto) Urine WBC Clumps (Auto) Urine Microscopic WBC Ur Squamous Epith Cells Urine Bacteria 08/23/18 08/23/18 08/23/18 05:30 05:30 11:45 WBC RBC Hgb Hct MCV MCH MCHC RDW Plt Count MPV Neut % (Auto) Lymph % (Auto) Glenn % (Auto) Eos % (Auto) Baso % (Auto) Neut # (Auto) Lymph # (Auto) Glenn # (Auto) Eos # (Auto) Baso # (Auto) Neutrophils % (Manual) Band Neutrophils % Lymphocytes % (Manual) Monocytes % (Manual) Metamyelocytes % Toxic Granulation Platelet Estimate Plt Clumps, EDTA Large Platelets Hypochromasia (manual) Anisocytosis (manual) Macrocytosis (manual) Tear Drop Cells Ovalocytes Schistocytes PT 18.6 H INR 1.6 APTT 35.3 pCO2 pO2 HCO3 ABG pH ABG Total CO2 ABG O2 Saturation ABG Base Excess Jam Test ABG Potassium VBG pH VBG pCO2 VBG HCO3 VBG Total CO2 VBG O2 Sat (Calc) VBG Base Excess VBG Potassium A-a O2 Difference Sodium 139 Chloride 107 Glucose Lactate FiO2 Blood Gas Comments Crit Value Called To Crit Value Called By Crit Value Read Back Blood Gas Notified Time Potassium 4.4 Carbon Dioxide 21 L Anion Gap 15 BUN 44 H Creatinine 2.5 H Est GFR ( Amer) 30 Est GFR (Non-Af Amer) 25 Random Glucose 139 H Lactic Acid 5.2 H* Calcium 6.8 L Triglycerides 128 Cholesterol 100 LDL Cholesterol Direct 43 HDL Cholesterol 30 TSH 3rd Generation 3.13 Arterial Blood Potassium Venous Blood Potassium Urine Color Urine Clarity Urine pH Ur Specific [place] Urine Protein Urine Glucose (UA) Urine Ketones Urine Blood Urine Nitrate Urine Bilirubin Urine Urobilinogen Ur Leukocyte Esterase Urine RBC (Auto) Urine WBC Clumps (Auto) Urine Microscopic WBC Ur Squamous Epith Cells Urine Bacteria reviewed J.P. - EKG Data EKG comments: reviewed J.P. - Imaging and Cardiology Chest x-ray Status: Report reviewed by me (J.P.) Additional comment: Echo and Humerus X-Ray: All reviewed J.P. CT scan - head Status: Report reviewed by me (MattPRadha) Assessment & Plan (1) Status post tracheostomy Status: Acute Priority: High (2) COPD (chronic obstructive pulmonary disease) Status: Acute Priority: High - Assessment and Plan (Free Text) Plan: Continue O2 35% Trach collar, Xopenex, Atrovent, Zosyn, Vanco and rest of Tx. - Date & Time Date: 08/23/18 Time: 14:50
[2018-08-23] MEDS ORDERED: Ipratropium 0.02% Inhal Soln (0.5 mg/2.5 ml) UD IH SCH (14:45)
[2018-08-23] MEDS: Ipratropium 0.02% Inhal Soln (0.5 mg/2.5 ml) UD IH SCH ×2 (15:50→23:44)
[2018-08-23] MEDS: Levalbuterol 0.63 MG/3 ML Inhal Soln UD INH SCH ×3 (15:51→23:44)
--- NOTE | 2018-08-23 19:23 | CARD ---
APPROVED REPORT Date of service: 08/23/2018 EXAM: Two-dimensional and M-mode echocardiogram with Doppler and color Doppler. Other Information Quality : GoodRhythm : Atrial Fibrillation INDICATION Atrial Fibrillation 2D DIMENSIONS IVSd1.24 (0.7-1.1cm)LVDd5.70 (3.9-5.9cm) LVOT Diameter2.21 (1.8-2.4cm)PWd1.05 (0.7-1.1cm) IVSs1.49 (0.8-1.2cm)LVDs5.20 (2.5-4.0cm) FS (%) 8.7 %PWs1.23 (0.8-1.2cm) M-Mode DIMENSIONS Left Atrium (MM)5.51 (2.5-4.0cm)IVSd1.54 (0.7-1.1cm) Aortic Root3.35 (2.2-3.7cm)LVDd5.88 (4.0-5.6cm) Aortic Cusp Exc.1.73 (1.5-2.0cm)PWd1.25 (0.7-1.1cm) IVSs1.69 cmFS (%) 31 % LVDs4.08 (2.0-3.8cm)PWs1.62 cm Aortic Valve AoV Peak Qqnqdfnp367.2cm/sAoV VTI42.2cmAO Peak GR.26mmHg LVOT Peak Nrzlevxb82.3cm/sLVOT VTI14.79cmAO Mean GR.14mmHg MINOR (VMAX)0.03in6JUT (VTI)0.69cm2 Mitral Valve MV E Exouyaye77.3cm/sMV DECEL [id number] A Tloagtxj08.6cm/s MV FPN69qbE/A ratio2.5MVA (PHT)3.48cm2 TDI Lateral E' Peak V21.71cm/sMedial E' Peak V9.21cm/sE/Lateral E'4.4 E/Medial E'10.3 Tricuspid Valve TR Peak Fzzlbhno262mx/sRAP [id number] Peak Gr.39mmHg [id number] LEFT VENTRICLE The left ventricle is normal size. There is normal left ventricular wall thickness. The left ventricular systolic function is normal. The estimated ejection fraction is 50-55% No regional wall motion abnormalities noted.. The left ventricular diastolic function cannot be assessed due to underlying atrial fibrillation. No left ventricle thrombus noted on this study. There is no ventricular septal defect visualized. There is no left ventricular aneurysm. There is no mass noted in the left ventricle. RIGHT VENTRICLE The right ventricle is normal size. There is normal right ventricular wall thickness. The right ventricular systolic function is normal. ATRIA The left atrium is moderately dilated. The right atrium size is dilated The interatrial septum is intact with no evidence for an atrial septal defect. AORTIC VALVE The aortic valve is normal in structure. Mildly calcified leaflets. No aortic regurgitation is present. There is mild aortic valvular stenosis. There is no aortic valvular vegetation. MITRAL VALVE The mitral valve is normal in structure. There is mild prolapse of anterior mitral valve leaflet. There is no mitral valve stenosis. There is atleast moderate, eccentric, anteriorly directed mitral valve regurgitation noted. TRICUSPID VALVE The tricuspid valve is normal in structure. There is mild to moderate tricuspid valve regurgitation noted. RVSP is calculated at 52 mm Hg. There is no tricuspid valve prolapse or vegetation. There is no tricuspid valve stenosis. PULMONIC VALVE The pulmonary valve is normal in structure. There is no pulmonic valvular regurgitation. There is no pulmonic valvular stenosis. GREAT VESSELS The aortic root is normal in size. The ascending aorta is normal in size. The pulmonary artery is normal. The IVC is dilated in size and collapses >50% with inspiration. PERICARDIAL EFFUSION There is no pericardial effusion. There is no pleural effusion. <Conclusion> The estimated ejection fraction is 50-55% The left ventricular diastolic function cannot be assessed due to underlying atrial fibrillation. The left atrium is moderately dilated. There is mild aortic valvular stenosis. There is moderate, eccentric, anteriorly directed mitral valve regurgitation noted. There is mild to moderate tricuspid valve regurgitation noted. RVSP is calculated at 52 mm Hg. The IVC is dilated in size and collapses >50% with inspiration.
[2018-08-23 20:24] LABS: PROLACTIN 8.1 ng/mL (3.7-17.9)
[2018-08-24] MEDS: Sodium Chloride 0.9% 1,000 ML IV SCH ×4 (01:46→22:23)
[2018-08-24] MEDS: Albuterol-Ipratrop 3 mg / 0.5 (3 ml) UD INH PRN ×2 (06:26→06:41)
[2018-08-24 06:35] LABS: MEAN CELL VOLUME 103.9 fl (80.0-94.0); MEAN CORPUSCULAR HEMOGLOBIN 32.8 pg (27.0-31.0); MEAN CORPUSCULAR HGB CONC 31.6 g/dL (33.0-37.0); RBC 3.36 Mil/uL (4.40-5.90); RED CELL DISTRIBUTION WIDTH 15.1 % (11.5-14.5); WHITE BLOOD COUNT 13.1 K/uL (4.8-10.8)
[2018-08-24] MEDS ORDERED: Meropenem 1 GM in Sodium Chloride 0.9% 100 ML IVPB ONE (07:41)
[2018-08-24] MEDS ORDERED: Albuterol-Ipratrop 3 mg / 0.5 (3 ml) UD INH SCH (08:00)
[2018-08-24] MEDS: Ipratropium 0.02% Inhal Soln (0.5 mg/2.5 ml) UD IH SCH (08:10)
[2018-08-24] MEDS: Levalbuterol 0.63 MG/3 ML Inhal Soln UD INH SCH ×3 (08:10→23:54)
[2018-08-24] MEDS ORDERED: Thiamine 100 mg/ml Inj IM ONE (08:53)
[2018-08-24] MEDS: Pantoprazole 40 mg EC Tab PO SCH (09:17)
--- NOTE | 2018-08-24 09:51 | RAD ---
Date of service: 08/24/2018 PROCEDURE: CHEST RADIOGRAPH, 1 VIEW HISTORY: suspected aspiration COMPARISON: None available. FINDINGS: LUNGS: Mild interstitial changes. PLEURA: No pneumothorax or pleural fluid seen. CARDIOVASCULAR: Atherosclerotic aorta. Cardiomegaly. Normal. OSSEOUS STRUCTURES: No significant abnormalities. VISUALIZED UPPER ABDOMEN: Normal. OTHER FINDINGS: None. IMPRESSION: Cardiomegaly. Atherosclerotic aorta. Mild interstitial changes. ETT above the tracy.
--- NOTE | 2018-08-24 10:33 | CP.PCM.CON ---
<Fernando Ramos - Last Filed: 08/24/18 10:21> History of Present Illness - History of Present Illness History of Present Illness: General Surgery Consult Note for Dr. Diez Consult: Tracheostomy adjustment CC: Tracheostomy dislodged, hypercapnic 87 year old male, past medical history of tracheostomy and laryngeal cancer, consulted for replacement of a tracheostomy after being found in respiratory distress, disoriented and hypercapnic on VBG. Patient has had trach for 10 years, placed by unknown surgeon. Patient admitted for sepsis secondary to UTI. Medical team and nurses report patient was alert and oriented yesterday. Patient and family are poor historians thus history is limited. No previous records available. Patient has mild respiratory distress, but otherwise stable. ROS unob tainable at this time. PMH: Laryngeal cancer PSH: Trach FH: unknown SH: unknown ALL: NKDA Meds: See MAR Review of Systems - Review of Systems Systems not reviewed;Unavailable: Acuity of Condition, Altered Mental Status Past Patient History - Past Medical History & Family History Past Medical History?: Yes - Past Social History Smoking Status: Former Smoker Alcohol: None Drugs: Denies Home Situation {Lives}: Alone - CARDIAC Hx Cardiac Disorders: No Hx Angina: No - PULMONARY Hx Respiratory Disorders: Yes Hx Pneumonia: Yes Other/Comment: W/ trach - NEUROLOGICAL Hx Neurological Disorder: Yes Hx Dementia: Yes - HEENT Hx HEENT Problems: No - RENAL Hx Chronic Kidney Disease: No - ENDOCRINE/METABOLIC Hx Endocrine Disorders: No - HEMATOLOGICAL/ONCOLOGICAL Hx Blood Disorders: No Hx AIDS: No Hx Human Immunodeficiency Virus (HIV): No - INTEGUMENTARY Hx Dermatological Problems: No - MUSCULOSKELETAL/RHEUMATOLOGICAL Hx Musculoskeletal Disorders: Yes Hx Falls: Yes - GASTROINTESTINAL Hx Gastrointestinal Disorders: No - GENITOURINARY/GYNECOLOGICAL Hx Genitourinary Disorders: Yes Hx Prostate Problems: Yes - PSYCHIATRIC Hx Psychophysiologic Disorder: No Hx Substance Use: No - SURGICAL HISTORY Hx Surgeries: Yes Hx Joint Replacement: Yes (LEFT KNEE SURGERY) - ANESTHESIA Hx Anesthesia: Yes Hx Anesthesia Reactions: No Hx Malignant Hyperthermia: No Meds Allergies/Adverse Reactions: Allergies Allergy/AdvReac Type Severity Reaction Status Date / Time No Known Allergies Allergy Verified 08/22/18 13:05 - Medications Medications: Current Medications Acetaminophen (Tylenol 325mg Tab) 650 mg PO Q6 PRN PRN Reason: Fever >100.4 F Albuterol/Ipratropium (Duoneb 3 Mg/0.5 Mg (3 Ml) Ud) 3 ml INH RQ6 [facility] Docusate Sodium (Colace) 100 mg PO BID PRN PRN Reason: Constipation Heparin Sodium (Porcine) (Heparin) 5,000 units SC Q12 [facility]; Protocol Last Admin: 08/24/18 09:18 Dose: 5,000 units Sodium Chloride (Sodium Chloride 0.9%) 1,000 mls @ 150 mls/hr IV .Q6H40M [facility] Last Admin: 08/24/18 09:21 Dose: 150 mls/hr Vancomycin HCl 1 gm/ Sodium (Chloride) 250 mls @ 166.667 mls/hr IVPB DAILY [facility]; Protocol Last Admin: 08/24/18 09:24 Dose: 166.667 mls/hr Piperacillin Sod/Tazobactam (Sod 2.25 gm/ Sodium Chloride) 100 mls @ 100 mls/hr IVPB Q6 [facility]; Protocol Last Admin: 08/24/18 09:25 Dose: 100 mls/hr Folic Acid 1 mg/ Sodium (Chloride) 100.2 mls @ 60 mls/hr IVPB DAILY [facility] Ipratropium [place] (Atrovent) 0.5 mg IH RQ8 [facility] Last Admin: 08/24/18 08:10 Dose: 0.5 mg Levalbuterol HCl (Xopenex) 0.63 mg INH RQ8 [facility] Last Admin: 08/24/18 08:10 Dose: 0.63 mg Pantoprazole Sodium (Protonix Ec Tab) 40 mg PO DAILY [facility] Last Admin: 08/24/18 09:17 Dose: Not Given Physical Exam - Constitutional Appears: Non-toxic, No Acute Distress, Chronically Ill - Head Exam Head Exam: ATRAUMATIC, NORMAL INSPECTION, NORMOCEPHALIC - Eye Exam Eye Exam: absent: EOMI - ENT Exam ENT Exam: Mucous Membranes Dry - Neck Exam Additional comments: Tracheostomy site c/d/i, nonerythematous - Respiratory Exam Respiratory Exam: Accessory Muscle Use - Cardiovascular Exam Cardiovascular Exam: REGULAR RHYTHM - GI/Abdominal Exam GI & Abdominal Exam: Normal Bowel Sounds, Soft. absent: Tenderness Results - Vital Signs Recent Vital Signs: Last Vital Signs Temp 98.2 F 08/24/18 08:43 Pulse 83 08/24/18 08:43 Resp 20 08/24/18 08:43 BP 109/63 08/24/18 08:43 Pulse Ox 93 L 08/24/18 08:43 - Labs Result Diagrams: 08/24/18 05:30 08/23/18 05:30 Labs: Laboratory Results - last 24 hr 08/23/18 08/23/18 08/23/18 05:30 05:30 11:45 WBC RBC Hgb Hct MCV MCH MCHC RDW Plt Count Neutrophils % (Manual) 76 H Band Neutrophils % 18 H* Lymphocytes % (Manual) 2 L Monocytes % (Manual) 3 Metamyelocytes % 1 H Toxic Granulation Present Platelet Estimate Normal Plt Clumps, EDTA Present Large Platelets Present Hypochromasia (manual) Slight Macrocytosis (manual) Slight Tear Drop Cells Slight Ovalocytes Slight Schistocytes Slight POC Glucose (mg/dL) Lactic Acid 5.2 H* Prolactin 8.1 Vancomycin Trough 08/24/18 08/24/18 08/24/18 05:30 06:38 08:20 WBC 13.1 H RBC 3.36 L Hgb 11.0 L Hct 34.9 L MCV 103.9 H MCH 32.8 H MCHC 31.6 L RDW 15.1 H Plt Count 179 Neutrophils % (Manual) Band Neutrophils % Lymphocytes % (Manual) Monocytes % (Manual) Metamyelocytes % Toxic Granulation Platelet Estimate Plt Clumps, EDTA Large Platelets Hypochromasia (manual) Macrocytosis (manual) Tear Drop Cells Ovalocytes Schistocytes POC Glucose (mg/dL) 179 H Lactic Acid Prolactin Vancomycin Trough 10.5 H Assessment & Plan - Assessment and Plan (Free Text) Assessment: 87M w/ tracheostomy Plan: Will replace trach for CPAP Continue to monitor respiratory status CXR from today shows possible aspiration vs mucous plugging Continue IV Abx Patient's family aware and will make necessary decisions based on patient's medical status Further medical management per primary team Further recommendations per Dr. Rg Ramos PGY1 <Elmer Diez J - Last Filed: 08/24/18 12:27> Meds - Medications Medications: Current Medications Acetaminophen (Tylenol 325mg Tab) 650 mg PO Q6 PRN PRN Reason: Fever >100.4 F Albuterol/Ipratropium (Duoneb 3 Mg/0.5 Mg (3 Ml) Ud) 3 ml INH RQ6 [facility] Docusate Sodium (Colace) 100 mg PO BID PRN PRN Reason: Constipation Heparin Sodium (Porcine) (Heparin) 5,000 units SC Q12 [facility]; Protocol Last Admin: 08/24/18 09:18 Dose: 5,000 units Sodium Chloride (Sodium Chloride 0.9%) 1,000 mls @ 150 mls/hr IV .Q6H40M [facility] Last Admin: 08/24/18 09:21 Dose: 150 mls/hr Vancomycin HCl 1 gm/ Sodium (Chloride) 250 mls @ 166.667 mls/hr IVPB DAILY [facility]; Protocol Last Admin: 08/24/18 09:24 Dose: 166.667 mls/hr Piperacillin Sod/Tazobactam (Sod 2.25 gm/ Sodium Chloride) 100 mls @ 100 mls/hr IVPB Q6 [facility]; Protocol Last Admin: 08/24/18 09:25 Dose: 100 mls/hr Folic Acid 1 mg/ Sodium (Chloride) 100.2 mls @ 60 mls/hr IVPB DAILY [facility] Last Admin: 08/24/18 11:11 Dose: 60 mls/hr Ipratropium [place] (Atrovent) 0.5 mg IH RQ8 [facility] Last Admin: 08/24/18 08:10 Dose: 0.5 mg Levalbuterol HCl (Xopenex) 0.63 mg INH RQ8 [facility] Last Admin: 08/24/18 08:10 Dose: 0.63 mg Pantoprazole Sodium (Protonix Ec Tab) 40 mg PO DAILY [facility] Last Admin: 08/24/18 09:17 Dose: Not Given Results - Vital Signs Recent Vital Signs: Last Vital Signs Temp 98.9 F 08/24/18 12:19 Pulse 86 08/24/18 12:19 Resp 20 08/24/18 12:19 BP 129/56 L 08/24/18 12:19 Pulse Ox 95 08/24/18 12:19 - Labs Result Diagrams: 08/24/18 05:30 08/23/18 05:30 Labs: Laboratory Results - last 24 hr 08/23/18 08/23/18 08/23/18 05:30 05:30 11:45 WBC RBC Hgb Hct MCV MCH MCHC RDW Plt Count Neutrophils % (Manual) 76 H Band Neutrophils % 18 H* Lymphocytes % (Manual) 2 L Monocytes % (Manual) 3 Metamyelocytes % 1 H Toxic Granulation Present Platelet Estimate Normal Plt Clumps, EDTA Present Large Platelets Present Hypochromasia (manual) Slight Macrocytosis (manual) Slight Tear Drop Cells Slight Ovalocytes Slight Schistocytes Slight POC Glucose (mg/dL) Lactic Acid 5.2 H* Prolactin 8.1 Vancomycin Trough 08/24/18 08/24/18 08/24/18 05:30 06:38 08:20 WBC 13.1 H RBC 3.36 L Hgb 11.0 L Hct 34.9 L MCV 103.9 H MCH 32.8 H MCHC 31.6 L RDW 15.1 H Plt Count 179 Neutrophils % (Manual) Band Neutrophils % Lymphocytes % (Manual) Monocytes % (Manual) Metamyelocytes % Toxic Granulation Platelet Estimate Plt Clumps, EDTA Large Platelets Hypochromasia (manual) Macrocytosis (manual) Tear Drop Cells Ovalocytes Schistocytes POC Glucose (mg/dL) 179 H Lactic Acid Prolactin Vancomycin Trough 10.5 H Assessment & Plan - Assessment and Plan (Free Text) Plan: trach changed, #[id number]
[2018-08-24] MEDS ORDERED: Chlorhexidine Gluconate 1 APPL/PKT TP ONE (11:47)
--- NOTE | 2018-08-24 14:29 | CP.PCM.PN ---
<Spring Antunez - Last Filed: 08/24/18 14:34> Subjective - Date & Time of Evaluation Date of Evaluation: 08/24/18 Time of Evaluation: 08:00 - Subjective Subjective: Patient seen and examined at bedside. He is not awake or alert. He reacts to painful stimuli. Patient was agitated over night and was attempting to pull out tracheostomy tube. He desaturated and became confused this morning. Charts, labs, and nurse notes reviewed. Objective - Vital Signs/Intake and Output Vital Signs (last 24 hours): Temp Pulse Resp BP Pulse Ox 98.9 F 86 20 129/56 L 95 08/24/18 12:19 12 12:19 08/24/18 12:19 08/24/18 12:19 08/24/18 12:19 - Medications Medications: Current Medications Acetaminophen (Tylenol 325mg Tab) 650 mg PO Q6 PRN PRN Reason: Fever >100.4 F Albuterol/Ipratropium (Duoneb 3 Mg/0.5 Mg (3 Ml) Ud) 3 ml INH RQ6 [facility] Last Admin: 08/24/18 13:40 Dose: 3 ml Docusate Sodium (Colace) 100 mg PO BID PRN PRN Reason: Constipation Heparin Sodium (Porcine) (Heparin) 5,000 units SC Q12 [facility]; Protocol Last Admin: 08/24/18 09:18 Dose: 5,000 units Sodium Chloride (Sodium Chloride 0.9%) 1,000 mls @ 150 mls/hr IV .Q6H40M [facility] Last Admin: 08/24/18 09:21 Dose: 150 mls/hr Vancomycin HCl 1 gm/ Sodium (Chloride) 250 mls @ 166.667 mls/hr IVPB DAILY [facility]; Protocol Last Admin: 08/24/18 09:24 Dose: 166.667 mls/hr Piperacillin Sod/Tazobactam (Sod 2.25 gm/ Sodium Chloride) 100 mls @ 100 mls/hr IVPB Q6 [facility]; Protocol Last Admin: 08/24/18 09:25 Dose: 100 mls/hr Folic Acid 1 mg/ Sodium (Chloride) 100.2 mls @ 60 mls/hr IVPB DAILY [facility] Last Admin: 08/24/18 11:11 Dose: 60 mls/hr Meropenem 1 gm/ Sodium (Chloride) 100 mls @ 100 mls/hr IVPB Q8 [facility]; Protocol Ipratropium Okay (Atrovent) 0.5 mg IH RQ8 [facility] Last Admin: 08/24/18 08:10 Dose: 0.5 mg Levalbuterol HCl (Xopenex) 0.63 mg INH RQ8 [facility] Last Admin: 08/24/18 08:10 Dose: 0.63 mg Pantoprazole Sodium (Protonix Ec Tab) 40 mg PO DAILY [facility] Last Admin: 08/24/18 09:17 Dose: Not Given - Labs Labs: 08/24/18 05:30 08/23/18 05:30 PT 18.6 Seconds (9.8-13.1) H 08/23/18 05:30 INR 1.6 08/23/18 05:30 APTT 35.3 Seconds (25.6-37.1) 08/23/18 05:30 - Constitutional Appears: Other (AMS) - ENT Exam ENT Exam: Mucous Membranes Moist - Respiratory Exam Respiratory Exam: Decreased Breath Sounds Additional comments: labored breathing - Cardiovascular Exam Cardiovascular Exam: REGULAR RHYTHM, +S1, +S2 - Neurological Exam Neurological Exam: Altered. absent: Alert, Awake, Oriented x3 - Psychiatric Exam Psychiatric exam: Agitated Assessment and Plan - Assessment and Plan (Free Text) Assessment: 87 yo male w/ hx of laryngeal cancer and tracheostomy tube x 10 years and COPD admitted for sepsis secondary to urinary tract infection, treated w/ vanc 1gm IV QD and Zosyn 2.25 IV Q6. Patient attempted to remove tracheostomy tube, desaturated and retained CO2, developing respiratory acidosis, requiring CPAP. Meropenem 1gm IV Q6 added for empircal treatment. ID consulted. Plan: Sepsis secondary to urinary tract infection - On admission: WBC 21.1, Lactate 7.4, febrile 101.8 BP 102/56 - Wbc 21.1-->11.5 -->13.1 -Urine culture: corynebacterium, no sensitivity studies -Blood culture pending -Continue vancomycin 1 gm and Zosyn 2.25 gm f/u on vanc trough before 4th dose -added Meropenem 1gm IV Q6 -Cont IV fluid hydration NaCl- 150mL/hr -ID consulted, appreciate recs - f/u CBC w/ diff in AM Respiratory Acidosis pCo2: 71, pH 7.05, pO2 54, SpO2 in 80s Started CPAP: peep 5, support pressure 10, FiO2 40 Surg consulted to change trach tubing; appreciate recs CXR: cardiomegaly, atherosclerotic aorta. Mild interstitial changes. ETT above the tracy Follow ABG in AM Altered Mental Status Likely secondary to hypercapnia/resp acidosis Will cont to monitor Acute Kidney Injury - likely multifactorial 2/2 sepsis vs. dehydration -IV fluid hydration NaCl- 1L @ 150mL/hr -Renal dosing of meds -avoid nephrotoxic rx Macrocytic Anemia Cont B12 and Thiamine COPD -no acute exacerbation -trach intact w/ CPAP now Prophylaxis -Dvt: SCD, Heparin 5000 units SC Q12 -GI: protonix Left buttock and right tricep superficial wound possibly secondary to trauma - stable, no drainage. Full code -DNR/DNI <Carlos Enrique South D - Last Filed: 08/25/18 11:15> Objective - Vital Signs/Intake and Output Vital Signs (last 24 hours): Temp Pulse Resp BP Pulse Ox 97 F L 69 20 99/44 L 97 08/25/18 07:41 08/25/18 07:41 08/25/18 07:41 08/25/18 07:41 08/25/18 07:41 Intake and Output: 08/25/18 08/25/18 06:59 18:59 Intake Total 3500 Output Total 1100 Balance 2400 - Medications Medications: Current Medications Acetaminophen (Tylenol 325mg Tab) 650 mg PO Q6 PRN PRN Reason: Fever >100.4 F Albuterol/Ipratropium (Duoneb 3 Mg/0.5 Mg (3 Ml) Ud) 3 ml INH RQ6 PRN PRN Reason: Wheezing Docusate Sodium (Colace) 100 mg PO BID PRN PRN Reason: Constipation Heparin Sodium (Porcine) (Heparin) 5,000 units SC Q12 [facility]; Protocol Last Admin: 08/25/18 09:21 Dose: 5,000 units Sodium Chloride (Sodium Chloride 0.9%) 1,000 mls @ 150 mls/hr IV .Q6H40M [facility] Last Admin: 08/25/18 09:20 Dose: 150 mls/hr Vancomycin HCl 1 gm/ Sodium (Chloride) 250 mls @ 166.667 mls/hr IVPB DAILY [facility]; Protocol Last Admin: 08/25/18 09:18 Dose: 166.667 mls/hr Folic Acid 1 mg/ Sodium (Chloride) 100.2 mls @ 60 mls/hr IVPB DAILY [facility] Last Admin: 08/24/18 11:11 Dose: 60 mls/hr Meropenem 1 gm/ Sodium (Chloride) 100 mls @ 100 mls/hr IVPB Q8 [facility]; Protocol Last Admin: 08/25/18 09:17 Dose: 100 mls/hr Levalbuterol HCl (Xopenex) 0.63 mg INH RQ8 [facility] Last Admin: 08/25/18 07:59 Dose: 0.63 mg Pantoprazole Sodium (Protonix Ec Tab) 40 mg PO DAILY [facility] Last Admin: 08/25/18 09:21 Dose: 40 mg - Labs Labs: 08/25/18 05:15 08/25/18 05:15 PT 18.6 Seconds (9.8-13.1) H 08/23/18 05:30 INR 1.6 08/23/18 05:30 APTT 35.3 Seconds (25.6-37.1) 08/23/18 05:30 Attending/Attestation - Attestation I have personally seen and examined this patient.: Yes I have fully participated in the care of the patient.: Yes I have reviewed all pertinent clinical information, including history, physical exam and plan: Yes Notes (Text): 08/25/18 11:14 Patient seen and examined with resident. Case discussed and agreed with assessment.
--- NOTE | 2018-08-24 15:15 | CP.PCM.PN ---
Subjective - Date & Time of Evaluation Date of Evaluation: 08/24/18 Time of Evaluation: 12:50 - Subjective Subjective: F/U Trach/COPD Lethargic, non arousable, today placed on CPAP, O2 via vent machine, FIO2 50%. Objective - Vital Signs/Intake and Output Vital Signs (last 24 hours): Temp Pulse Resp BP Pulse Ox 98.9 F 86 20 129/56 L 95 08/24/18 12:19 08/24/18 12:19 08/24/18 12:19 08/24/18 12:19 08/24/18 12:19 - Medications Medications: Current Medications Acetaminophen (Tylenol 325mg Tab) 650 mg PO Q6 PRN PRN Reason: Fever >100.4 F Albuterol/Ipratropium (Duoneb 3 Mg/0.5 Mg (3 Ml) Ud) 3 ml INH RQ6 [facility] Last Admin: 08/24/18 13:40 Dose: 3 ml Docusate Sodium (Colace) 100 mg PO BID PRN PRN Reason: Constipation Heparin Sodium (Porcine) (Heparin) 5,000 units SC Q12 [facility]; Protocol Last Admin: 08/24/18 09:18 Dose: 5,000 units Sodium Chloride (Sodium Chloride 0.9%) 1,000 mls @ 150 mls/hr IV .Q6H40M [facility] Last Admin: 08/24/18 09:21 Dose: 150 mls/hr Vancomycin HCl 1 gm/ Sodium (Chloride) 250 mls @ 166.667 mls/hr IVPB DAILY [facility]; Protocol Last Admin: 08/24/18 09:24 Dose: 166.667 mls/hr Piperacillin Sod/Tazobactam (Sod 2.25 gm/ Sodium Chloride) 100 mls @ 100 mls/hr IVPB Q6 [facility]; Protocol Last Admin: 08/24/18 09:25 Dose: 100 mls/hr Folic Acid 1 mg/ Sodium (Chloride) 100.2 mls @ 60 mls/hr IVPB DAILY [facility] Last Admin: 08/24/18 11:11 Dose: 60 mls/hr Meropenem 1 gm/ Sodium (Chloride) 100 mls @ 100 mls/hr IVPB Q8 [facility]; Protocol Ipratropium [place] (Atrovent) 0.5 mg IH RQ8 [facility] Last Admin: 08/24/18 08:10 Dose: 0.5 mg Levalbuterol HCl (Xopenex) 0.63 mg INH RQ8 [facility] Last Admin: 08/24/18 08:10 Dose: 0.63 mg Pantoprazole Sodium (Protonix Ec Tab) 40 mg PO DAILY [facility] Last Admin: 08/24/18 09:17 Dose: Not Given - Labs Labs: 08/24/18 05:30 08/23/18 05:30 PT 18.6 Seconds (9.8-13.1) H 08/23/18 05:30 INR 1.6 08/23/18 05:30 APTT 35.3 Seconds (25.6-37.1) 08/23/18 05:30 - Constitutional Appears: No Acute Distress, Confused - Head Exam Head Exam: NORMAL INSPECTION - Eye Exam Additional comments: L lower eyelid ectropion - ENT Exam Additional comments: Tracheostomy - Neck Exam Additional comments: Tracheostomy, O2 via Leela. - Respiratory Exam Respiratory Exam: Rhonchi (scattered) - Cardiovascular Exam Cardiovascular Exam: Irregular Rhythm - GI/Abdominal Exam GI & Abdominal Exam: Soft, Normal Bowel Sounds Additional comments: Umbilical and abdominal hernia - Extremities Exam Additional comments: L knee healed scar from sx. - Neurological Exam Neurological Exam: Awake Additional comments: Confused, craneal nerves grossly normal, moves all extremities. - Psychiatric Exam Psychiatric exam: Anxious - Skin Skin Exam: Warm Assessment and Plan (1) Status post tracheostomy Status: Acute (2) COPD (chronic obstructive pulmonary disease) Status: Acute - Assessment and Plan (Free Text) Plan: Continue CPAP, Merren, Vanco, Duoneb and rest of Tx.
[2018-08-24] MEDS ORDERED: Albuterol-Ipratrop 3 mg / 0.5 (3 ml) UD INH PRN (15:51)
[2018-08-24 16:15] LABS: ABG ALLEN TEST YES; ARTERIAL BLOOD GAS HCO3 15.2 mmol/L (21-28); ARTERIAL BLOOD GAS O2 CAPACITY 15.1 mL/dL (16-24); ARTERIAL BLOOD GAS O2 CONTENT 15.1 ML/dL (15-23); ARTERIAL BLOOD GAS O2 SAT 100.2 % (95-98); ARTERIAL BLOOD GAS PCO2 66 mm/Hg (35-45); ARTERIAL BLOOD GAS PH 7.05 (7.35-7.45); ARTERIAL BLOOD GAS PO2 118 mm/Hg (80-100); ARTERIAL BLOOD GAS TCO2 20.3 mmol/L (22-28)
[2018-08-24] MEDS: Meropenem 1 GM in Sodium Chloride 0.9% 100 ML IVPB SCH (17:33)
--- NOTE | 2018-08-24 21:13 | CP.PCM.CON ---
Past Patient History - Past Medical History & Family History Past Medical History?: Yes - Past Social History Smoking Status: Former Smoker Alcohol: None Drugs: Denies Home Situation {Lives}: Alone - CARDIAC Hx Cardiac Disorders: No Hx Angina: No - PULMONARY Hx Respiratory Disorders: Yes Hx Chronic Obstructive Pulmonary Disease (COPD): Yes Hx Pneumonia: Yes Other/Comment: W/ trach - NEUROLOGICAL Hx Neurological Disorder: Yes Hx Dementia: Yes - HEENT Hx HEENT Problems: No - RENAL Hx Chronic Kidney Disease: No - ENDOCRINE/METABOLIC Hx Endocrine Disorders: No - HEMATOLOGICAL/ONCOLOGICAL Hx Blood Disorders: No Hx AIDS: No Hx Human Immunodeficiency Virus (HIV): No - INTEGUMENTARY Hx Dermatological Problems: No - MUSCULOSKELETAL/RHEUMATOLOGICAL Hx Musculoskeletal Disorders: Yes Hx Falls: Yes - GASTROINTESTINAL Hx Gastrointestinal Disorders: No - GENITOURINARY/GYNECOLOGICAL Hx Genitourinary Disorders: Yes Hx Prostate Problems: Yes - PSYCHIATRIC Hx Psychophysiologic Disorder: No Hx Substance Use: No - SURGICAL HISTORY Hx Surgeries: Yes Hx Joint Replacement: Yes (LEFT KNEE SURGERY) - ANESTHESIA Hx Anesthesia: Yes Hx Anesthesia Reactions: No Hx Malignant Hyperthermia: No Meds Allergies/Adverse Reactions: Allergies Allergy/AdvReac Type Severity Reaction Status Date / Time No Known Allergies Allergy Verified 08/22/18 13:05 - Medications Medications: Current Medications Acetaminophen (Tylenol 325mg Tab) 650 mg PO Q6 PRN PRN Reason: Fever >100.4 F Albuterol/Ipratropium (Duoneb 3 Mg/0.5 Mg (3 Ml) Ud) 3 ml INH RQ6 PRN PRN Reason: Wheezing Docusate Sodium (Colace) 100 mg PO BID PRN PRN Reason: Constipation Heparin Sodium (Porcine) (Heparin) 5,000 units SC Q12 [facility]; Protocol Last Admin: 08/24/18 20:57 Dose: 5,000 units Sodium Chloride (Sodium Chloride 0.9%) 1,000 mls @ 150 mls/hr IV .Q6H40M [facility] Last Admin: 08/24/18 17:46 Dose: 150 mls/hr Vancomycin HCl 1 gm/ Sodium (Chloride) 250 mls @ 166.667 mls/hr IVPB DAILY [facility]; Protocol Last Admin: 08/24/18 09:24 Dose: 166.667 mls/hr Folic Acid 1 mg/ Sodium (Chloride) 100.2 mls @ 60 mls/hr IVPB DAILY [facility] Last Admin: 08/24/18 11:11 Dose: 60 mls/hr Meropenem 1 gm/ Sodium (Chloride) 100 mls @ 100 mls/hr IVPB Q8 [facility]; Protocol Last Admin: 08/24/18 17:33 Dose: 100 mls/hr Levalbuterol HCl (Xopenex) 0.63 mg INH RQ8 [facility] Last Admin: 08/24/18 15:57 Dose: 0.63 mg Pantoprazole Sodium (Protonix Ec Tab) 40 mg PO DAILY [facility] Last Admin: 08/24/18 09:17 Dose: Not Given Results - Vital Signs Recent Vital Signs: Last Vital Signs Temp 98.2 F 08/24/18 19:34 Pulse 77 08/24/18 19:34 Resp 16 08/24/18 19:34 BP 157/98 H 08/24/18 19:34 Pulse Ox 100 08/24/18 19:34 - Labs Result Diagrams: 08/24/18 05:30 08/23/18 05:30 Labs: Laboratory Results - last 24 hr 08/24/18 08/24/18 08/24/18 05:30 06:38 08:20 WBC 13.1 H RBC 3.36 L Hgb 11.0 L Hct 34.9 L MCV 103.9 H MCH 32.8 H MCHC 31.6 L RDW 15.1 H Plt Count 179 pCO2 pO2 HCO3 ABG pH ABG Total CO2 ABG O2 Saturation ABG O2 Content ABG Base Excess ABG Hemoglobin ABG Carboxyhemoglobin POC ABG HHb (Measured) ABG Methemoglobin ABG O2 Capacity Jam Test A-a O2 Difference Hgb O2 Saturation Vent Mode FiO2 PEEP Pressure Support Crit Value Called To Crit Value Called By Crit Value Read Back Blood Gas Notified Time POC Glucose (mg/dL) 179 H Vancomycin Trough 10.5 H 08/24/18 16:02 WBC RBC Hgb Hct MCV MCH MCHC RDW Plt Count pCO2 66 H pO2 118 H HCO3 15.2 L ABG pH 7.05 L* ABG Total CO2 20.3 L ABG O2 Saturation 100.2 H ABG O2 Content 15.1 ABG Base Excess -12.4 L ABG Hemoglobin 11.0 L ABG Carboxyhemoglobin 2.4 H POC ABG HHb (Measured) -0.2 L ABG Methemoglobin 1.4 ABG O2 Capacity 15.1 L Jam Test Yes A-a O2 Difference 85.0 Hgb O2 Saturation 96.4 Vent Mode Cpap FiO2 40.0 PEEP 5 Pressure Support 10 Crit Value Called To Yahaira banks Crit Value Called By Akua dodge Crit Value Read Back Y Blood Gas Notified Time 1611 POC Glucose (mg/dL) Vancomycin Trough Assessment & Plan - Assessment and Plan (Free Text) Assessment: UTI with purulent discharge. Clinically improving on Vancomycin, meropenem and zosyn. discontinue zosyn. has adequate broad spectrum coverage. If leukocytosis gets worse, then CT abdomen to rule out hydronephrosis/ureter and urology consult
[2018-08-25] MEDS: Meropenem 1 GM in Sodium Chloride 0.9% 100 ML IVPB SCH ×2 (00:20→09:17)
[2018-08-25 06:16] LABS: ALB/GLOB RATIO 0.7 (1.0-2.1); ALBUMIN 2.8 g/dL (3.5-5.0); CALCIUM 6.9 mg/dL (8.4-10.2)
[2018-08-25 06:19] LABS: BASO # 0.1 K/uL (0.0-0.2); BASO % 0.8 % (0.0-2.0); EOS % 0.1 % (0.0-4.0); LYMPH # 0.3 K/uL (1.0-4.3); LYMPH % 2.4 % (20.0-40.0); MEAN CELL VOLUME 106.3 fl (80.0-94.0); MEAN CORPUSCULAR HEMOGLOBIN 32.8 pg (27.0-31.0); MEAN CORPUSCULAR HGB CONC 30.8 g/dL (33.0-37.0); MEAN PLATELET VOLUME 9.4 fl (7.2-11.7); MONO # 0.5 K/uL (0.0-0.8); MONO % 3.5 % (0.0-10.0); NEUT # 12.2 K/uL (1.8-7.0); NEUT % 93.2 % (50.0-75.0); NRBC % 0.2 % (0.0-0.0); PLATELET COUNT 123 K/uL (130-400); RBC 3.35 Mil/uL (4.40-5.90); RED CELL DISTRIBUTION WIDTH 15.8 % (11.5-14.5); WHITE BLOOD COUNT 13.1 K/uL (4.8-10.8)
[2018-08-25 07:19] LABS: BANDS 7 % (0-2); LYMPHOCYTE 4 % (20-50); MONOCYTE 1 % (0-10); NEUTROPHIL 87 % (42-75); PLATELET ESTIMATE DECREASED (NORMAL); TOTAL CELLS COUNTED 100
[2018-08-25 07:20] LABS: ANISOCYTOSIS SLIGHT; LARGE PLATELETS PRESENT; METAMYELOCYTE 1 % (0-0); OVALOCYTES MODERATE
[2018-08-25 07:42] VITALS: RESP 20; O2SAT 97
[2018-08-25] MEDS ORDERED: Insulin Regular 100 units/ml IV ONE (07:45)
[2018-08-25] MEDS ORDERED: Dextrose 50% SYRINGE Inj (50 ml) IVP ONE (07:45)
[2018-08-25] MEDS: Levalbuterol 0.63 MG/3 ML Inhal Soln UD INH SCH (07:59)
[2018-08-25] MEDS: Sodium Chloride 0.9% 1,000 ML IV SCH ×2 (09:19→09:20)
[2018-08-25] MEDS: Pantoprazole 40 mg EC Tab PO SCH ×2 (09:21→11:30)
--- NOTE | 2018-08-25 11:57 | CARD ---
APPROVED REPORT Date of service: 08/24/2018 EKG Measurement Heart [id number] <Conclusion> Atrial fibrillation Septal infarct, age undetermined Nonspecific T wave changes, consider lateral ischemia Abnormal ECG
[2018-08-25 12:17] LABS: ABG ALLEN TEST YES; ARTERIAL BLOOD GAS HCO3 15.8 mmol/L (21-28); ARTERIAL BLOOD GAS HEMOGLOBIN 11.3 g/dL (11.7-17.4); ARTERIAL BLOOD GAS O2 CAPACITY 15.2 mL/dL (16-24); ARTERIAL BLOOD GAS O2 CONTENT 13.6 ML/dL (15-23); ARTERIAL BLOOD GAS O2 SAT 89.2 % (95-98); ARTERIAL BLOOD GAS PCO2 71 mm/Hg (35-45); ARTERIAL BLOOD GAS PH 7.05 (7.35-7.45); ARTERIAL BLOOD GAS PO2 54 mm/Hg (80-100); ARTERIAL BLOOD GAS TCO2 21.8 mmol/L (22-28)
--- NOTE | 2018-08-25 12:25 | CP.PCM.PN ---
Subjective - Date & Time of Evaluation Date of Evaluation: 08/25/18 Time of Evaluation: 08:00 - Subjective Subjective: Patient seen and examined at bedside. He is not awake/alert. Responds to painful stimuli. Tracheostomy in place w/ cpap machine. No events over night. Charts, labs, nurse notes reviewed. Objective - Vital Signs/Intake and Output Vital Signs (last 24 hours): Temp Pulse Resp BP Pulse Ox 97 F L 69 20 99/44 L 97 08/25/18 07:41 08/25/18 07:41 08/25/18 07:41 08/25/18 07:41 08/25/18 07:41 Intake and Output: 08/25/18 08/25/18 06:59 18:59 Intake Total 3500 Output Total 1100 Balance 2400 - Medications Medications: Current Medications Acetaminophen (Tylenol 325mg Tab) 650 mg PO Q6 PRN PRN Reason: Fever >100.4 F Albuterol/Ipratropium (Duoneb 3 Mg/0.5 Mg (3 Ml) Ud) 3 ml INH RQ6 PRN PRN Reason: Wheezing Docusate Sodium (Colace) 100 mg PO BID PRN PRN Reason: Constipation Heparin Sodium (Porcine) (Heparin) 5,000 units SC Q12 [facility]; Protocol Last Admin: 08/25/18 09:21 Dose: 5,000 units Sodium Chloride (Sodium Chloride 0.9%) 1,000 mls @ 150 mls/hr IV .Q6H40M [facility] Last Admin: 08/25/18 09:20 Dose: 150 mls/hr Vancomycin HCl 1 gm/ Sodium (Chloride) 250 mls @ 166.667 mls/hr IVPB DAILY [facility]; Protocol Last Admin: 08/25/18 09:18 Dose: 166.667 mls/hr Folic Acid 1 mg/ Sodium (Chloride) 100.2 mls @ 60 mls/hr IVPB DAILY [facility] Last Admin: 08/24/18 11:11 Dose: 60 mls/hr Meropenem 1 gm/ Sodium (Chloride) 100 mls @ 100 mls/hr IVPB Q8 [facility]; Protocol Last Admin: 08/25/18 09:17 Dose: 100 mls/hr Levalbuterol HCl (Xopenex) 0.63 mg INH RQ8 [facility] Last Admin: 08/25/18 07:59 Dose: 0.63 mg Pantoprazole Sodium (Protonix Ec Tab) 40 mg PO DAILY [facility] Last Admin: 08/25/18 11:30 Dose: Not Given - Labs Labs: 08/25/18 05:15 08/25/18 05:15 PT 18.6 Seconds (9.8-13.1) H 08/23/18 05:30 INR 1.6 08/23/18 05:30 APTT 35.3 Seconds (25.6-37.1) 08/23/18 05:30 Assessment and Plan - Assessment and Plan (Free Text) Assessment: Assessment: 87 yo male w/ hx of laryngeal cancer and tracheostomy tube x 10 years and COPD admitted for sepsis secondary to urinary tract infection, treated w/ vanc 1gm IV QD and Zosyn 2.25 IV Q6. Patient attempted to remove tracheostomy tube, desaturated and retained CO2, developing respiratory acidosis, requiring CPAP. Meropenem 1gm IV Q6 added for empircal treatment. ID consulted. Patient continues to be unresponsive and breathing w/ cpap in place. Plan: Sepsis secondary to urinary tract infection - On admission: WBC 21.1, Lactate 7.4, febrile 101.8 BP 102/56 - Wbc 21.1-->11.5 -->13.1 --> 3.3 -Urine culture: corynebacterium, no sensitivity studies -Blood culture pending -Continue vancomycin 1 gm and Zosyn 2.25 gm f/u on vanc trough before 4th dose -added Meropenem 1gm IV Q6 -Cont IV fluid hydration NaCl- 150mL/hr -ID consulted, appreciate recs - f/u CBC w/ diff in AM Respiratory Acidosis pCo2: 71, pH 7.05, pO2 54, SpO2 in 80s Started CPAP: peep 5, support pressure 10, FiO2 40 Surg consulted to change trach tubing; appreciate recs CXR: cardiomegaly, atherosclerotic aorta. Mild interstitial changes. ETT above the tracy Follow ABG in AM Altered Mental Status Likely secondary to hypercapnia/resp acidosis Will cont to monitor Acute Kidney Injury - likely multifactorial 2/2 sepsis vs. dehydration -IV fluid hydration NaCl- 1L @ 150mL/hr -Renal dosing of meds -avoid nephrotoxic rx Macrocytic Anemia Cont B12 and Thiamine COPD -no acute exacerbation -trach intact w/ CPAP now Prophylaxis -Dvt: SCD, Heparin 5000 units SC Q12 -GI: protonix Left buttock and right tricep superficial wound possibly secondary to trauma - stable, no drainage. Full code -DNR/DNI
--- NOTE | 2018-08-25 12:42 | CP.PCM.DIS ---
<Spring Antunez - Last Filed: 08/25/18 12:43> Provider - Provider Date of Admission: 08/22/18 14:53 Attending physician: Carlos Enrique South MD Consults: 08/22/18 16:41 Wound Care [Nursing Referral for Wound Care] Routine Comment: Physician Instructions: Reason For Exam: wound on left thigh 08/22/18 20:22 Case Management Referral Routine Comment: Physician Instructions: Reason For Exam: Pt lives alone . Reason for Referral: Discharge Planning 08/23/18 10:38 Wound Care [Nursing Referral for Wound Care] Routine Comment: Physician Instructions: Reason For Exam: opening on sacrum 08/23/18 10:46 Pulmonology Consult Routine Comment: Consulting Provider: Byron Ryan Consulting Physician: Byron Ryan Reason for Consult: history of insertion of trache collar 08/23/18 12:53 Infectious Disease Consult Routine Comment: Consulting Provider: Mercedes Graf Consulting Physician: Mercedes Graf Reason for Consult: sepsis, uti 08/24/18 09:16 Anesthesiology Consult Routine Comment: Consulting Provider: Avila Montes Consulting Physician: Avila Montes Reason for Consult: trachostomy tube change 08/24/18 09:41 Surgical [General Surgery Consult] Routine Comment: Consulting Provider: Elmer Diez Consulting Physician: Elmer Diez Reason for Consult: tracheostomy adjustment Time Spent in preparation of Discharge (in minutes): 35 Diagnosis - Discharge Diagnosis (1) COPD (chronic obstructive pulmonary disease) Status: Chronic Priority: Low (2) Dehydration Status: Acute Priority: Low (3) Sepsis Status: Acute Priority: Low (4) Status post tracheostomy Status: Chronic Priority: Low (5) UTI (urinary tract infection) Status: Acute Priority: Low (6) Pneumonia Status: Acute Priority: Low Hospital Course - Lab Results Lab Results: Micro Results 08/22/18 15:01 Blood Blood Culture - Preliminary NO GROWTH AFTER 48 HOURS 08/22/18 14:32 Blood-Venous Blood Culture - Preliminary NO GROWTH AFTER 48 HOURS 08/22/18 13:29 Blood Blood Culture - Preliminary NO GROWTH AFTER 48 HOURS 08/22/18 14:55 Urine Urine Culture - Final Corynebacterium Species Most Recent Lab Values WBC 13.1 K/uL (4.8-10.8) H 08/25/18 05:15 RBC 3.35 Mil/uL (4.40-5.90) L 08/25/18 05:15 Hgb 11.0 g/dL (12.0-18.0) L 08/25/18 05:15 Hct 35.6 % (35.0-51.0) 08/25/18 05:15 MCV 106.3 fl (80.0-94.0) H D 08/25/18 05:15 MCH 32.8 pg (27.0-31.0) H 08/25/18 05:15 MCHC 30.8 g/dL (33.0-37.0) L 08/25/18 05:15 RDW 15.8 % (11.5-14.5) H 08/25/18 05:15 Plt Count 123 K/uL (130-400) L D 08/25/18 05:15 MPV 9.4 fl (7.2-11.7) 08/25/18 05:15 Neut % (Auto) 93.2 % (50.0-75.0) H 08/25/18 05:15 Lymph % (Auto) 2.4 % (20.0-40.0) L 08/25/18 05:15 Dent % (Auto) 3.5 % (0.0-10.0) 08/25/18 05:15 Eos % (Auto) 0.1 % (0.0-4.0) 08/25/18 05:15 Baso % (Auto) 0.8 % (0.0-2.0) 08/25/18 05:15 Neut # (Auto) 12.2 K/uL (1.8-7.0) H 08/25/18 05:15 Lymph # (Auto) 0.3 K/uL (1.0-4.3) L 08/25/18 05:15 Dent # (Auto) 0.5 K/uL (0.0-0.8) 08/25/18 05:15 Eos # (Auto) 0.0 K/uL (0.0-0.7) 08/25/18 05:15 Baso # (Auto) 0.1 K/uL (0.0-0.2) 08/25/18 05:15 Neutrophils % (Manual) 87 % (42-75) H 08/25/18 05:15 Band Neutrophils % 7 % (0-2) H 08/25/18 05:15 Lymphocytes % (Manual) 4 % (20-50) L 08/25/18 05:15 Monocytes % (Manual) 1 % (0-10) 08/25/18 05:15 Metamyelocytes % 1 % (0-0) H 08/25/18 05:15 Toxic Granulation Present 08/23/18 05:30 Platelet Estimate Decreased (NORMAL) L 08/25/18 05:15 Plt Clumps, EDTA Present 08/23/18 05:30 Large Platelets Present 08/25/18 05:15 Hypochromasia (manual) Slight 08/23/18 05:30 Anisocytosis (manual) Slight 08/25/18 05:15 Macrocytosis (manual) Slight 08/25/18 05:15 Tear Drop Cells Slight 08/23/18 05:30 Ovalocytes Moderate 08/25/18 05:15 Schistocytes Slight 08/23/18 05:30 PT 18.6 Seconds (9.8-13.1) H 08/23/18 05:30 INR 1.6 08/23/18 05:30 APTT 35.3 Seconds (25.6-37.1) 08/23/18 05:30 pCO2 66 mm/Hg (35-45) H 08/24/18 16:02 pO2 118 mm/Hg (80-100) H 08/24/18 16:02 HCO3 15.2 mmol/L (21-28) L 08/24/18 16:02 ABG pH 7.05 (7.35-7.45) L* 08/24/18 16:02 ABG Total CO2 20.3 mmol/L (22-28) L 08/24/18 16:02 ABG O2 Saturation 100.2 % (95-98) H 08/24/18 16:02 ABG O2 Content 15.1 ML/dL (15-23) 08/24/18 16:02 ABG Base Excess -12.4 mmol/L (-2.0-3.0) L 08/24/18 16:02 ABG Hemoglobin 11.0 g/dL (11.7-17.4) L 08/24/18 16:02 ABG Carboxyhemoglobin 2.4 % (0.5-1.5) H 08/24/18 16:02 POC ABG HHb (Measured) -0.2 % (0.0-5.0) L 08/24/18 16:02 ABG Methemoglobin 1.4 % (0.0-3.0) 08/24/18 16:02 ABG O2 Capacity 15.1 mL/dL (16-24) L 08/24/18 16:02 Jam Test Yes 08/24/18 16:02 ABG Potassium 4.6 mmol/L (3.6-5.2) 08/23/18 04:00 VBG pH 7.29 (7.32-7.43) L 08/22/18 14:18 VBG pCO2 49 mmHg (40-60) 08/22/18 14:18 VBG HCO3 18.4 mmol/L 08/22/18 14:18 VBG Total CO2 25.1 mmol/L (22-28) 08/22/18 14:18 VBG O2 Sat (Calc) 19.4 % (40-65) L 08/22/18 14:18 VBG Base Excess -3.8 mmol/L (0.0-2.0) L 08/22/18 14:18 VBG Potassium 5.8 mmol/L (3.6-5.2) H 08/22/18 14:18 A-a O2 Difference 85.0 mm/Hg 08/24/18 16:02 Hgb O2 Saturation 96.4 % (95.0-98.0) 08/24/18 16:02 Sodium 136.0 mmol/L (132-148) 08/23/18 04:00 Chloride 109.0 mmol/L (98-107) H 08/23/18 04:00 Glucose 146 mg/dL (75-110) H 08/23/18 04:00 Lactate 1.7 mmol/L (0.7-2.1) 08/23/18 04:00 Vent Mode Cpap 08/24/18 16:02 FiO2 40.0 % 08/24/18 16:02 PEEP 5 08/24/18 16:02 Pressure Support 10 08/24/18 16:02 Blood Gas Comments Vbg 08/22/18 14:18 Crit Value Called To Yahaira banks 08/24/18 16:02 Crit Value Called By Akua dodge 08/24/18 16:02 Crit Value Read Back Y 08/24/18 16:02 Blood Gas Notified Time 1611 08/24/18 16:02 Sodium 142 mmol/l (132-148) 08/25/18 05:15 Potassium 5.9 MMOL/L (3.6-5.0) H 08/25/18 05:15 Chloride 114 mmol/L (98-107) H 08/25/18 05:15 Carbon Dioxide 14 mmol/L (22-30) L 08/25/18 05:15 Anion Gap 20 (10-20) 08/25/18 05:15 BUN 69 mg/dl (9-20) H 08/25/18 05:15 Creatinine 4.7 mg/dl (0.8-1.5) H 08/25/18 05:15 Est GFR ( Amer) 14 08/25/18 05:15 Est GFR (Non-Af Amer) 12 08/25/18 05:15 POC Glucose (mg/dL) 179 mg/dL (65-110) H 08/24/18 06:38 Random Glucose 140 mg/dL (75-110) H 08/25/18 05:15 Lactic Acid 1.8 MMOL/L (0.7-2.1) 08/25/18 05:15 Calcium 6.9 mg/dL (8.4-10.2) L 08/25/18 05:15 Total Bilirubin 0.6 mg/dl (0.2-1.3) 08/25/18 05:15 AST 560 U/L (17-59) H D 08/25/18 05:15 ALT 138 U/L (21-72) H D 08/25/18 05:15 Alkaline Phosphatase 57 U/L (38-126) 08/25/18 05:15 Ammonia 34 umo/L (16-60) 08/25/18 05:15 Total Protein 6.6 G/DL (6.3-8.2) 08/25/18 05:15 Albumin 2.8 g/dL (3.5-5.0) L D 08/25/18 05:15 Globulin 3.8 gm/dL (2.2-3.9) 08/25/18 05:15 Albumin/Globulin Ratio 0.7 (1.0-2.1) L 08/25/18 05:15 Triglycerides 128 mg/DL (0-149) 08/23/18 05:30 Cholesterol 100 mg/dL (0-199) 08/23/18 05:30 LDL Cholesterol Direct 43 mg/dL (0-129) 08/23/18 05:30 HDL Cholesterol 30 MG/DL (30-70) 08/23/18 05:30 TSH 3rd Generation 3.13 mIU/ML (0.46-4.68) 08/23/18 05:30 Prolactin 8.1 ng/mL (3.7-17.9) 08/23/18 05:30 Arterial Blood Potassium 4.6 mmol/L (3.6-5.2) 08/23/18 04:00 Venous Blood Potassium 5.8 mmol/L (3.6-5.2) H 08/22/18 14:18 Urine Color Yellow (YELLOW) 08/22/18 14:55 Urine Clarity Turbid (Clear) 08/22/18 14:55 Urine pH 5.0 (5.0-8.0) 08/22/18 14:55 Ur Specific [place] 1.012 (1.003-1.030) 08/22/18 14:55 Urine Protein >=500 mg/dL (NEGATIVE) 08/22/18 14:55 Urine Glucose (UA) Neg mg/dL (NEGATIVE) 08/22/18 14:55 Urine Ketones Negative mg/dL (NEGATIVE) 08/22/18 14:55 Urine Blood Moderate (NEGATIVE) 08/22/18 14:55 Urine Nitrate Negative (NEGATIVE) 08/22/18 14:55 Urine Bilirubin Negative (NEGATIVE) 08/22/18 14:55 Urine Urobilinogen 0.2-1.0 mg/dL (0.2-1.0) 08/22/18 14:55 Ur Leukocyte Esterase Small Harjit/uL (Negative) 08/22/18 14:55 Urine RBC (Auto) 880 /hpf (0-3) H 08/22/18 14:55 Urine WBC Clumps (Auto) Many /hpf (NONE) H 08/22/18 14:55 Urine Microscopic WBC 93935 /hpf (0-5) H 08/22/18 14:55 Ur Squamous Epith Cells 63 /hpf (0-5) H 08/22/18 14:55 Urine Bacteria Many (<OCC) H 08/22/18 14:55 Vancomycin Trough 10.5 ug/mL (5.0-10.0) H 08/24/18 08:20 - Hospital Course Hospital Course: 87 y/o DNR/DNI male w/ hx of laryngeal cancer and tracheostomy tube x 10 years and COPD admitted for sepsis secondary to urinary tract infection, treated w/ vanc 1gm IV QD and Zosyn 2.25 IV Q6. Patient attempted to remove tracheostomy tube, desaturated and retained CO2, developing respiratory acidosis, requiring CPAP. Meropenem 1gm IV Q6 added for empircal treatment. Patient continued to be unresponsive, w/ worsening kidney and liver function likely secondary to hypoperfusion. Family at bedside states that patient's wishes are aligned w/ hospice care. Patient will be discharged to inpatient hospice. Discharge Exam - Eye Exam Pupil Exam: Miosis - ENT Exam ENT Exam: Mucous Membranes Dry - Respiratory Exam Respiratory Exam: Rales, Rhonchi - Cardiovascular Exam Cardiovascular Exam: REGULAR RHYTHM - GI/Abdominal Exam GI & Abdominal Exam: Normal Bowel Sounds, Soft - Neurological Exam Neurological exam: Altered - Skin Skin Exam: Dry Discharge Plan - Follow Up Plan Condition: GUARDED Disposition: HOSPICE - MEDICAL FACILITY Instructions: Urinary Tract Infection, Adult (DC), Sepsis, Adult (DC), Dehydration (DC), Urinary Tract Infection in Women (DC), Urinary Tract Infection in Men (DC), Sepsis (DC), Sepsis (GEN), Dysuria (GEN) Additional Instructions: Patient to be discharged to inpatient hospice <Steph Lozano - Last Filed: 08/25/18 16:29> Provider - Provider Date of Admission: 08/22/18 14:53 Attending physician: Carlos Enrique South MD Consults: 08/22/18 16:41 Wound Care [Nursing Referral for Wound Care] Routine Comment: Physician Instructions: Reason For Exam: wound on left thigh 08/22/18 20:22 Case Management Referral Routine Comment: Physician Instructions: Reason For Exam: Pt lives alone . Reason for Referral: Discharge Planning 08/23/18 10:38 Wound Care [Nursing Referral for Wound Care] Routine Comment: Physician Instructions: Reason For Exam: opening on sacrum 08/23/18 10:46 Pulmonology Consult Routine Comment: Consulting Provider: Byron Ryan Consulting Physician: Byron Ryan Reason for Consult: history of insertion of trache collar 08/23/18 12:53 Infectious Disease Consult Routine Comment: Consulting Provider: Mercedes Graf Consulting Physician: Mercedes Graf Reason for Consult: sepsis, uti 08/24/18 09:16 Anesthesiology Consult Routine Comment: Consulting Provider: Avila Montes Consulting Physician: Avila Montes Reason for Consult: trachostomy tube change 08/24/18 09:41 Surgical [General Surgery Consult] Routine Comment: Consulting Provider: Elmer Diez Consulting Physician: Elmer Diez Reason for Consult: tracheostomy adjustment Hospital Course - Lab Results Lab Results: Micro Results 08/22/18 14:32 Blood-Venous Blood Culture - Preliminary NO GROWTH AFTER 3 DAYS 08/22/18 13:29 Blood Blood Culture - Preliminary NO GROWTH AFTER 3 DAYS 08/22/18 15:01 Blood Blood Culture - Preliminary NO GROWTH AFTER 48 HOURS 08/22/18 14:55 Urine Urine Culture - Final Corynebacterium Species Most Recent Lab Values WBC 13.1 K/uL (4.8-10.8) H 08/25/18 05:15 RBC 3.35 Mil/uL (4.40-5.90) L 08/25/18 05:15 Hgb 11.0 g/dL (12.0-18.0) L 08/25/18 05:15 Hct 35.6 % (35.0-51.0) 08/25/18 05:15 MCV 106.3 fl (80.0-94.0) H D 08/25/18 05:15 MCH 32.8 pg (27.0-31.0) H 08/25/18 05:15 MCHC 30.8 g/dL (33.0-37.0) L 08/25/18 05:15 RDW 15.8 % (11.5-14.5) H 08/25/18 05:15 Plt Count 123 K/uL (130-400) L D 08/25/18 05:15 MPV 9.4 fl (7.2-11.7) 08/25/18 05:15 Neut % (Auto) 93.2 % (50.0-75.0) H 08/25/18 05:15 Lymph % (Auto) 2.4 % (20.0-40.0) L 08/25/18 05:15 Dent % (Auto) 3.5 % (0.0-10.0) 08/25/18 05:15 Eos % (Auto) 0.1 % (0.0-4.0) 08/25/18 05:15 Baso % (Auto) 0.8 % (0.0-2.0) 08/25/18 05:15 Neut # (Auto) 12.2 K/uL (1.8-7.0) H 08/25/18 05:15 Lymph # (Auto) 0.3 K/uL (1.0-4.3) L 08/25/18 05:15 Dent # (Auto) 0.5 K/uL (0.0-0.8) 08/25/18 05:15 Eos # (Auto) 0.0 K/uL (0.0-0.7) 08/25/18 05:15 Baso # (Auto) 0.1 K/uL (0.0-0.2) 08/25/18 05:15 Neutrophils % (Manual) 87 % (42-75) H 08/25/18 05:15 Band Neutrophils % 7 % (0-2) H 08/25/18 05:15 Lymphocytes % (Manual) 4 % (20-50) L 08/25/18 05:15 Monocytes % (Manual) 1 % (0-10) 08/25/18 05:15 Metamyelocytes % 1 % (0-0) H 08/25/18 05:15 Toxic Granulation Present 08/23/18 05:30 Platelet Estimate Decreased (NORMAL) L 08/25/18 05:15 Plt Clumps, EDTA Present 08/23/18 05:30 Large Platelets Present 08/25/18 05:15 Hypochromasia (manual) Slight 08/23/18 05:30 Anisocytosis (manual) Slight 08/25/18 05:15 Macrocytosis (manual) Slight 08/25/18 05:15 Tear Drop Cells Slight 08/23/18 05:30 Ovalocytes Moderate 08/25/18 05:15 Schistocytes Slight 08/23/18 05:30 PT 18.6 Seconds (9.8-13.1) H 08/23/18 05:30 INR 1.6 08/23/18 05:30 APTT 35.3 Seconds (25.6-37.1) 08/23/18 05:30 pCO2 66 mm/Hg (35-45) H 08/24/18 16:02 pO2 118 mm/Hg (80-100) H 08/24/18 16:02 HCO3 15.2 mmol/L (21-28) L 08/24/18 16:02 ABG pH 7.05 (7.35-7.45) L* 08/24/18 16:02 ABG Total CO2 20.3 mmol/L (22-28) L 08/24/18 16:02 ABG O2 Saturation 100.2 % (95-98) H 08/24/18 16:02 ABG O2 Content 15.1 ML/dL (15-23) 08/24/18 16:02 ABG Base Excess -12.4 mmol/L (-2.0-3.0) L 08/24/18 16:02 ABG Hemoglobin 11.0 g/dL (11.7-17.4) L 08/24/18 16:02 ABG Carboxyhemoglobin 2.4 % (0.5-1.5) H 08/24/18 16:02 POC ABG HHb (Measured) -0.2 % (0.0-5.0) L 08/24/18 16:02 ABG Methemoglobin 1.4 % (0.0-3.0) 08/24/18 16:02 ABG O2 Capacity 15.1 mL/dL (16-24) L 08/24/18 16:02 Jam Test Yes 08/24/18 16:02 ABG Potassium 4.6 mmol/L (3.6-5.2) 08/23/18 04:00 VBG pH 7.29 (7.32-7.43) L 08/22/18 14:18 VBG pCO2 49 mmHg (40-60) 08/22/18 14:18 VBG HCO3 18.4 mmol/L 08/22/18 14:18 VBG Total CO2 25.1 mmol/L (22-28) 08/22/18 14:18 VBG O2 Sat (Calc) 19.4 % (40-65) L 08/22/18 14:18 VBG Base Excess -3.8 mmol/L (0.0-2.0) L 08/22/18 14:18 VBG Potassium 5.8 mmol/L (3.6-5.2) H 08/22/18 14:18 A-a O2 Difference 85.0 mm/Hg 08/24/18 16:02 Hgb O2 Saturation 96.4 % (95.0-98.0) 08/24/18 16:02 Sodium 136.0 mmol/L (132-148) 08/23/18 04:00 Chloride 109.0 mmol/L (98-107) H 08/23/18 04:00 Glucose 146 mg/dL (75-110) H 08/23/18 04:00 Lactate 1.7 mmol/L (0.7-2.1) 08/23/18 04:00 Vent Mode Cpap 08/24/18 16:02 FiO2 40.0 % 08/24/18 16:02 PEEP 5 08/24/18 16:02 Pressure Support 10 08/24/18 16:02 Blood Gas Comments Vbg 08/22/18 14:18 Crit Value Called To Yahaira banks 08/24/18 16:02 Crit Value Called By Akua dodge 08/24/18 16:02 Crit Value Read Back Y 08/24/18 16:02 Blood Gas Notified Time 1611 08/24/18 16:02 Sodium 142 mmol/l (132-148) 08/25/18 05:15 Potassium 5.9 MMOL/L (3.6-5.0) H 08/25/18 05:15 Chloride 114 mmol/L (98-107) H 08/25/18 05:15 Carbon Dioxide 14 mmol/L (22-30) L 08/25/18 05:15 Anion Gap 20 (10-20) 08/25/18 05:15 BUN 69 mg/dl (9-20) H 08/25/18 05:15 Creatinine 4.7 mg/dl (0.8-1.5) H 08/25/18 05:15 Est GFR ( Amer) 14 08/25/18 05:15 Est GFR (Non-Af Amer) 12 08/25/18 05:15 POC Glucose (mg/dL) 179 mg/dL (65-110) H 08/24/18 06:38 Random Glucose 140 mg/dL (75-110) H 08/25/18 05:15 Lactic Acid 1.8 MMOL/L (0.7-2.1) 08/25/18 05:15 Calcium 6.9 mg/dL (8.4-10.2) L 08/25/18 05:15 Total Bilirubin 0.6 mg/dl (0.2-1.3) 08/25/18 05:15 AST 560 U/L (17-59) H D 08/25/18 05:15 ALT 138 U/L (21-72) H D 08/25/18 05:15 Alkaline Phosphatase 57 U/L (38-126) 08/25/18 05:15 Ammonia 34 umo/L (16-60) 08/25/18 05:15 Total Protein 6.6 G/DL (6.3-8.2) 08/25/18 05:15 Albumin 2.8 g/dL (3.5-5.0) L D 08/25/18 05:15 Globulin 3.8 gm/dL (2.2-3.9) 08/25/18 05:15 Albumin/Globulin Ratio 0.7 (1.0-2.1) L 08/25/18 05:15 Triglycerides 128 mg/DL (0-149) 08/23/18 05:30 Cholesterol 100 mg/dL (0-199) 08/23/18 05:30 LDL Cholesterol Direct 43 mg/dL (0-129) 08/23/18 05:30 HDL Cholesterol 30 MG/DL (30-70) 08/23/18 05:30 TSH 3rd Generation 3.13 mIU/ML (0.46-4.68) 08/23/18 05:30 Prolactin 8.1 ng/mL (3.7-17.9) 08/23/18 05:30 Arterial Blood Potassium 4.6 mmol/L (3.6-5.2) 08/23/18 04:00 Venous Blood Potassium 5.8 mmol/L (3.6-5.2) H 08/22/18 14:18 Urine Color Yellow (YELLOW) 08/22/18 14:55 Urine Clarity Turbid (Clear) 08/22/18 14:55 Urine pH 5.0 (5.0-8.0) 08/22/18 14:55 Ur Specific [place] 1.012 (1.003-1.030) 08/22/18 14:55 Urine Protein >=500 mg/dL (NEGATIVE) 08/22/18 14:55 Urine Glucose (UA) Neg mg/dL (NEGATIVE) 08/22/18 14:55 Urine Ketones Negative mg/dL (NEGATIVE) 08/22/18 14:55 Urine Blood Moderate (NEGATIVE) 08/22/18 14:55 Urine Nitrate Negative (NEGATIVE) 08/22/18 14:55 Urine Bilirubin Negative (NEGATIVE) 08/22/18 14:55 Urine Urobilinogen 0.2-1.0 mg/dL (0.2-1.0) 08/22/18 14:55 Ur Leukocyte Esterase Small Harjit/uL (Negative) 08/22/18 14:55 Urine RBC (Auto) 880 /hpf (0-3) H 08/22/18 14:55 Urine WBC Clumps (Auto) Many /hpf (NONE) H 08/22/18 14:55 Urine Microscopic WBC 77978 /hpf (0-5) H 08/22/18 14:55 Ur Squamous Epith Cells 63 /hpf (0-5) H 08/22/18 14:55 Urine Bacteria Many (<OCC) H 08/22/18 14:55 Vancomycin Trough 10.5 ug/mL (5.0-10.0) H 08/24/18 08:20 Attending/Attestation - Attestation I have personally seen and examined this patient.: Yes I have fully participated in the care of the patient.: Yes I have reviewed all pertinent clinical information, including history, physical exam and plan: Yes Notes (Text): Acute Respiratory Failure , Hypoxemic and Hypercapneic probably due to Aspiration Pneumonia Sepsis (POA) sec to UTI Multiorgan Failure due to to Sepsis and Hypoxia - Acute Renal Failure, Liver Failure History of Laryngeal Cancer s/p Tracheostomy -Family wanted Hospice Care -Hospice consulted- d/c pt to Inpatient Hospice
[2018-08-25 12:58] VITALS: BP 94/56; PULSE 78; TEMP 97.9
--- NOTE | 2018-08-25 14:32 | PQF ---
PROVIDER RESPONSE TEXT: Stage II Sacral Decubitus Ulcer , POA REVIEWER QUERY TEXT: Pressure Ulcer Type Pressure ulcer is documented in the Medical Record. Please specify the location, present on admission status and/or stage:Location and laterality of pressure ulcer(s): POA status of each pressure ulcer: -- Not present on admission -- Present on admission -- Other -- Clinically unable to determine -- Unknown ER: Extremity: Positive for: Other (Left hip 3 cm dried ulcer with surrounding erythema. No drainage ) POA: Present On Arrival: Pressure Ulcer H and P: Left buttock and right tricep superficial wound possibly secondary to trauma - stable, no dr campbell. 08/22 Staff Nurse: Admission Assessment Info: Pressure Ulcer POA: no 08/25 Staff Nurse: Pressure Ulcer Assessment: Sacrum: Partial thickness loss of dermis presenting as a shallow ulcer Panel definitions): -- Stage I: Intact skin with non-blanchable redness of a localized area -- Stage II: Partial thickness skin loss involving dermis with a shallow open ulcer or an open serum -filled blister -- Stage III: Full thickness skin loss involving damage or necrosis of subcutaneous tissue -- Stage IV: Full thickness skin loss with exposed bone, tendon or muscle -- Unstageable: Full thickness tissue loss in which the base of the ulcer is covered by slough and/o r eschar in the wound bed The patient's Clinical Indicators include: -- Query created by: Kassie Patton on 08/25/2018 1:51 PM Electronically signed by: Steph Lozano MD 08/25/2018 2:29 PM
== END 2018-08-25 14:34 | disposition hospice, inpatient (51) | DRG 208 ==
LOC: H.ER 12:56 → H.ERHOLD 14:53 → H.TEL 16:33
PROC: 0B21XFZ Change Tracheostomy Device in Trachea, External Approach (ICD-10-PCS; principal; 2018-08-24)
PROC: 5A1945Z Respiratory Ventilation, 24-96 Consecutive Hours (ICD-10-PCS; 2018-08-24)
DX: J69.0 Pneumonitis due to inhalation of food and vomit (principal); A41.9 Sepsis, unspecified organism; J96.01 Acute respiratory failure with hypoxia; J96.02 Acute respiratory failure with hypercapnia; N39.0 Urinary tract infection, site not specified; E87.2 Acidosis; N17.9 Acute kidney failure, unspecified; L97.829 Non-pressure chronic ulcer of other part of left lower leg with unspecified severity; Z43.0 Encounter for attention to tracheostomy; J44.9 Chronic obstructive pulmonary disease, unspecified; Z66 Do not resuscitate; F03.90 Unspecified dementia, unspecified severity, without behavioral disturbance, psychotic disturbance, mood disturbance, and anxiety; I48.91 Unspecified atrial fibrillation; Z87.891 Personal history of nicotine dependence; Z96.652 Presence of left artificial knee joint; H02.105 Unspecified ectropion of left lower eyelid; Z85.21 Personal history of malignant neoplasm of larynx; B95.1 Streptococcus, group B, as the cause of diseases classified elsewhere; D53.9 Nutritional anemia, unspecified; K42.9 Umbilical hernia without obstruction or gangrene; E86.0 Dehydration; K72.90 Hepatic failure, unspecified without coma; L89.152 Pressure ulcer of sacral region, stage 2; Z51.5 Encounter for palliative care

== ENCOUNTER 2018-08-25 14:12 | Inpatient (IN) | payer OTHER ==
[2018-08-25] MEDS ORDERED: Morphine 100 MG in Sodium Chloride 0.9% 100 ML IV SCH (14:15)
[2018-08-25 15:44] VITALS: BP 88/49; PULSE 61; RESP 18; TEMP 98.6; O2SAT 90
--- NOTE | 2018-08-25 19:56 | CP.PCM.PRO ---
Pronouncement of Note - Clinical Findings Physical Exam: No Response Verbal/Painful Stimuli, Absent Peripheral Puls es{Carotid & Femoral}, Absent Heart & Breath Sounds, Absence of Vital Signs - Pronouncement Time Time of Pronouncement of : 19:50 - Notifications Pronouncement Notifications: Atending Notified Medical Oncologist Notified: No - Autopsy Autopsy Requested: No - N.Matt Certificate [place]ED[place] Number: [id number]
--- NOTE | 2018-08-28 15:29 | CP.PCM.HP ---
History of Present Illness - History of Present Illness History of Present Illness: Chief Complaint : Admitted for Inpatient Hospice, end of life care HPI: 87 y/o gent with hx of Laryngeal CA s/p Tracheostomy , found down at home with his Tracheostomy out . He was admitted for Sepsis due to UTI . Pulmonary consulted - Dr Ryan replaced his Trach. Patient had AMS on admission and his condition worsened despite IV antibiotics. He went into Respiratory failure likely due to Aspiration Pneumonia. He was placed on a Ventilator on CPAP mode however despite this his prognosis remained poor and he developed multiorgan failure. Pt is DNR as per his prior wish . His daughter then wanted no further treatment and wanted Hospice Care. Present on Admission - Present on Admission Any Indicators Present on Admission: No Review of Systems - Review of Systems Systems not reviewed;Unavailable: Unstable Vital Signs Past Patient History - Infectious Disease Hx of Infectious Diseases: None - Tetanus Immunizations Tetanus Immunization: Unknown - Past Medical History & Family History Past Medical History?: Yes Past Family History: Reviewed and not pertinent - Past Social History Smoking Status: Former Smoker Chewing Tobacco Use: No Cigar Use: No Alcohol: Occasional - CARDIAC Hx Cardiac Disorders: No Hx Angina: No - PULMONARY Hx Respiratory Disorders: Yes Hx Chronic Obstructive Pulmonary Disease (COPD): Yes Hx Pneumonia: Yes Other/Comment: W/ trach - NEUROLOGICAL Hx Neurological Disorder: Yes Hx Dementia: Yes - HEENT Hx HEENT Problems: No - RENAL Hx Chronic Kidney Disease: No - ENDOCRINE/METABOLIC Hx Endocrine Disorders: No - HEMATOLOGICAL/ONCOLOGICAL Hx Blood Disorders: No Hx AIDS: No Hx Human Immunodeficiency Virus (HIV): No - INTEGUMENTARY Hx Dermatological Problems: No - MUSCULOSKELETAL/RHEUMATOLOGICAL Hx Falls: Yes - GASTROINTESTINAL Hx Gastrointestinal Disorders: No - GENITOURINARY/GYNECOLOGICAL Hx Genitourinary Disorders: Yes Hx Prostate Problems: Yes - PSYCHIATRIC Hx Substance Use: No - SURGICAL HISTORY Hx Surgeries: Yes Hx Joint Replacement: Yes (LEFT KNEE SURGERY) - ANESTHESIA Hx Anesthesia: Yes Hx Anesthesia Reactions: No Hx Malignant Hyperthermia: No Meds Allergies/Adverse Reactions: Allergies Allergy/AdvReac Type Severity Reaction Status Date / Time No Known Allergies Allergy Verified 08/22/18 13:05 Physical Exam - Constitutional Appears: Toxic, In Acute Distress, Chronically Ill - Head Exam Head Exam: NORMOCEPHALIC - Eye Exam Eye Exam: PERRL - ENT Exam ENT Exam: Mucous Membranes Dry, Normal External Ear Exam - Respiratory Exam Respiratory Exam: Accessory Muscle Use, Rales, Rhonchi, Respiratory Distress - Cardiovascular Exam Cardiovascular Exam: Tachycardia, REGULAR RHYTHM - GI/Abdominal Exam GI & Abdominal Exam: Distended, Normal Bowel Sounds - Neurological Exam Additional comments: obtunded - Skin Skin Exam: Dry, Pallor Results - Vital Signs Recent Vital Signs: Last Vital Signs Temp 98.6 F 08/25/18 16:05 Pulse 61 08/25/18 16:05 Resp 18 08/25/18 16:05 BP 88/49 L 08/25/18 16:05 Pulse Ox 90 L 08/25/18 16:05 Assessment & Plan - Assessment and Plan (Free Text) Assessment: Acute Respiratory Failure , Hypoxemic and Hypercapneic probably due to Aspiration Pneumonia Sepsis (POA) sec to UTI Multiorgan Failure due to to Sepsis and Hypoxia - Acute Renal Failure, Liver Failure History of Laryngeal Cancer s/p Tracheostomy -Family wanted Hospice Care -Hospice consulted- Patient admitted Inpatient Hospice - start Morphine drip 1 mg/hr - start Ativan for agitation
--- NOTE | 2018-08-30 18:22 | CP.PCM.DIS ---
Provider - Provider Date of Admission: 08/25/18 14:16 Attending physician: Steph Lozano MD Primary care physician: Dr Pulido Consults: [facility] Time Spent in preparation of Discharge (in minutes): 15 Diagnosis - Discharge Diagnosis (1) Sepsis Status: Acute Priority: Low (2) Pneumonia Status: Acute Priority: Low (3) UTI (urinary tract infection) Status: Acute Priority: Low (4) Acute respiratory failure with hypoxia and hypercapnia Status: Acute (5) Aspiration pneumonia Status: Acute Hospital Course - Hospital Course Hospital Course: Acute Respiratory Failure , Hypoxemic and Hypercapneic probably due to Aspiration Pneumonia Sepsis (POA) sec to UTI Multiorgan Failure due to to Sepsis and Hypoxia - Acute Renal Failure, Liver Failure History of Laryngeal Cancer s/p Tracheostomy -Family wanted Hospice Care -Hospice consulted- Patient admitted Inpatient Hospice - started Morphine drip 1 mg/hr - started Ativan for agitation Patient on 08/25/2018 at 19:50. Discharge Exam - Head Exam Head Exam: NORMOCEPHALIC Additional comments: Pt Discharge Plan - Follow Up Plan Condition: Disposition: WITH WITHOUT AUTOPSY
== END 2018-08-25 19:30 | DRG 951 ==
LOC: H.ERHOLD 14:16 → H.TEL 14:34
PROVIDERS: ADMIT Internal Medicine; ATTEND Internal Medicine
DX: Z51.5 Encounter for palliative care (principal); A41.9 Sepsis, unspecified organism; J69.0 Pneumonitis due to inhalation of food and vomit; J96.01 Acute respiratory failure with hypoxia; J96.02 Acute respiratory failure with hypercapnia; N39.0 Urinary tract infection, site not specified; N17.9 Acute kidney failure, unspecified; F03.90 Unspecified dementia, unspecified severity, without behavioral disturbance, psychotic disturbance, mood disturbance, and anxiety; J44.9 Chronic obstructive pulmonary disease, unspecified; Z66 Do not resuscitate; Z85.21 Personal history of malignant neoplasm of larynx; Z93.0 Tracheostomy status; Z96.652 Presence of left artificial knee joint; K72.90 Hepatic failure, unspecified without coma; Z87.891 Personal history of nicotine dependence